=== PATIENT | male | born 1960 ===

== ENCOUNTER 2019-11-07 14:32 | Observation (INO) | payer MEDICAID, OTHER ==
[2019-11-07] MEDS ORDERED: Aspirin 81 MG Tab.Chew PO ONE (14:49)
[2019-11-07] MEDS ORDERED: Nitroglycerin 0.4 MG Tab.SL SL PRN (14:49)
--- NOTE | 2019-11-07 14:51 | EDM.PDOC ---
ED HPI GENERAL MEDICAL PROBLEM - General Chief Complaint: Respiratory Problem Stated Complaint: SHORTNESS OF BREATH Time Seen by Provider: 11/07/19 14:34 Source of Information: Reports: Patient History Limitations: Reports: No Limitations - History of Present Illness INITIAL COMMENTS - FREE TEXT/NARRATIVE: HISTORY AND PHYSICAL: History of present illness: Patient is a 58-year-old male who presents to the emergency room with complaints of shortness of breath and left-sided chest pain. He states that he started to have a coughing fit last evening around midnight and started to develop left sided chest pain. The pain is noticeable only when he coughs. States he is short of breath although this is "sort of usual for me" as he does have a history of COPD, although does not take his prescribed inhalers. States he also has a history of congestive heart failure and previously was on Lasix but is failed to take this medication as well. He states he was swabbed for COVID-19 a few days ago, although has not received any results. Patient denies any fever, chills, headache, change in vision, syncope or near syncope. Denies any chest pain, back pain, shortness of breath or cough. Denies any abdominal pain, nausea, vomiting, diarrhea, constipation or dysuria. Has not noted any blood in urine or stool. Patient has been eating and drinking appropriately. Review of systems: As per history of present illness and below otherwise all systems reviewed and negative. Past medical history: As per history of present illness and as reviewed below otherwise noncontributor y. Surgical history: As per history of present illness and as reviewed below otherwise noncontributory. Social history: See social history for further information Family history: As per history of present illness and as reviewed below otherwise noncontributory. Physical exam: General: Well developed and well nourished 58-year-old male. Alert and appropriate for age. Nontoxic-appearing and in no acute distress. HEENT: Atraumatic, normocephalic, pupils equal and reactive bilaterally, negative for conjunctival pallor or scleral icterus, mucous membranes moist, TMs normal bilaterally, throat clear, neck supple, nontender, trachea midline. No drooling or trismus noted. No meningeal signs. No hot potato voice noted. Lungs: Clear to auscultation, breath sounds equal bilaterally, chest nontender. Heart: S1S2, regular rate and rhythm without overt murmur Abdomen: Soft, obese, large umbilical hernia noted, nontender. Negative for hepatosplenomegaly. Negative for costovertebral tenderness. Skin: Intact, warm, dry. No lesions or rashes noted. Extremities: Atraumatic, moves all extremities per self without difficulty or deficits, negative for cords or calf pain. +2 pitting edema to bilateral lower extremities. +CMS. + bilateral pedal pulses. Neurovascular unremarkable. Neuro: Awake, alert, oriented. Cranial nerves II through XII unremarkable. Cerebellum unremarkable. Motor and sensory unremarkable throughout. Exam nonfocal. Notes: EKG shows sinus tachycardia with a rate of 111. He does have a prolonged QT interval (QT 378, QTc 514) -no EKG available for comparison. Patient's d-dimer is elevated at 2.24, CT chest rule out PE has been ordered. Due to the patient's large distended abdomen and concern of possible ascites we will add a CT of the abdomen and pelvis as well. Patient's BN P is 2023, he has a history of congestive heart failure but has not taken Lasix since April. He states he has failed to follow-up to get medication refills "since COVID-[address] of the abdomen and pelvis shows 3 anterior abdominal wall hernias. Additional fat-containing umbilical hernia, no obstruction. Small amount of ascites around the liver. Body wall edema is noted. Multiple small gallstones within the gallbladder. CT of chest shows no findings of pulmonary embolism. Small to moderate right-sided pleural effusion with fluid extending into the major fissure. Atelectasis adjacent to the pleural effusion is noted. Small groundglass nodule within the right middle lobe. The radiologist is recommending follow-up in 6 months. Patient's blood pressure is elevated, continues to be high through his ER stay. Will start oral lisinopril while here. I consulted Dr. Jenkins, hospitalist registration representative, she is aware of patient's need for admission. She is agreeable to ad mitting patient for further care and management. Will place patient on telemetry. Diagnostics: CBC, CMP, BNP, troponin, EKG, 1 view chest Therapeutics: Solu-Medrol, Lasix, Lisinopril Impression: Medication noncompliant CHF Uncontrolled HTN Chest pain r/o ID Prolonged QT on EKG Plan: Observation admission to med/surg with telemetry Definitive disposition and diagnosis as appropriate pending reevaluation and review of above. - Related Data Allergies Allergy/AdvReac Type Severity Reaction Status Date / Time celecoxib [From Celebrex] Allergy Swelling Verified 11/07/19 15:08 Home Meds: Home Meds . [No Known Home Meds] 11/07/19 [History] ED ROS GENERAL - Review of Systems Review Of Systems: Comprehensive ROS is negative, except as noted in HPI. ED EXAM, GENERAL - Physical Exam Exam: See Below (See dictation) Course - Vital Signs Last Recorded V/S: Last Vital Signs Temp 96.3 F L 11/07/19 14:37 Pulse 109 H 11/07/19 18:00 Resp 24 H 11/07/19 18:00 BP 145/100 H 11/07/19 18:04 Pulse Ox 96 11/07/19 18:00 - Orders/Labs/Meds Orders: Active Orders 24 hr Category Date Time Status EKG Documentation Completion [RC] STAT Care 11/07/19 14:46 Active UA RFX JUDI AND CULT IF INDIC [URIN] Stat Lab 11/07/19 17:25 Received Nitroglycerin [Nitrostat] Med 11/07/19 14:49 Active 0.4 mg SL Q5M PRN Medication Orders Nitroglycerin (Nitrostat) 0.4 mg SL Q5M PRN PRN Reason: Chest Pain Last Admin: 11/07/19 15:11 Dose: 0.4 mg Documented by: JASON Labs: Laboratory Tests 11/07/19 11/07/19 11/07/19 Range/Units 14:40 14:40 14:40 WBC 7.50 (4.0-11.0) K/uL RBC 4.46 L (4.50-5.90) M/uL Hgb 14.7 (13.0-17.0) g/dL Hct 44.2 (38.0-50.0) % MCV 99.1 H (80.0-98.0) fL MCH 33.0 H (27.0-32.0) pg MCHC 33.3 (31.0-37.0) g/dL RDW Std Deviation 53.5 (28.0-62.0) fl RDW Coeff of Abdirizak 15 (11.0-15.0) % Plt Count 215 (150-400) K/uL MPV 10.90 (7.40-12.00) fL Neut % (Auto) 70.1 (48.0-80.0) % Lymph % (Auto) 18.4 (16.0-40.0) % [place] % (Auto) 10.7 (0.0-15.0) % Eos % (Auto) 0.5 (0.0-7.0) % Baso % (Auto) 0.3 (0.0-1.5) % Neut # (Auto) 5.3 (1.4-5.7) K/uL Lymph # (Auto) 1.4 (0.6-2.4) K/uL [place] # (Auto) 0.8 (0.0-0.8) K/uL Eos # (Auto) 0.0 (0.0-0.7) K/uL Baso # (Auto) 0.0 (0.0-0.1) K/uL Nucleated RBC % 0.0 /100WBC Nucleated RBCs # 0 K/uL D-Dimer, Quantitative (0.0-0.50) mg/L FEU Lactate 1.4 (0.20-2.00) mmol/L Sodium 136 (136-148) mmol/L Potassium 4.6 (3.5-5.1) mmol/L Chloride 101 (98-107) mmol/L Carbon Dioxide 22.8 (21.0-32.0) mmol/L BUN 18 (7.0-18.0) mg/dL Creatinine 1.0 (0.8-1.3) mg/dL Est Cr Clr Drug Dosing 86.80 mL/min Estimated GFR (MDRD) > 60.0 ml/min Glucose 101 (74-106) mg/dL Calcium 8.7 (8.5-10.1) mg/dL Total Bilirubin 1.8 H (0.2-1.0) mg/dL AST 43 H (15-37) IU/L ALT 29 (14-63) IU/L Alkaline Phosphatase 140 H (46-116) U/L Troponin I < 0.050 (0.000-0.056) ng/mL B-Natriuretic Peptide (<100) PG/ML Total Protein 8.3 H (6.4-8.2) g/dL Albumin 3.8 (3.4-5.0) g/dL Globulin 4.5 H (2.6-4.0) g/dL Albumin/Globulin Ratio 0.8 L (0.9-1.6) Lipase 100 (73-393) U/L COVID-19 (SIGRID) (NEGATIVE) 11/07/19 11/07/19 11/07/19 Range/Units 14:40 14:40 15:25 WBC (4.0-11.0) K/uL RBC (4.50-5.90) M/uL Hgb (13.0-17.0) g/dL Hct (38.0-50.0) % MCV (80.0-98.0) fL MCH (27.0-32.0) pg MCHC (31.0-37.0) g/dL RDW Std Deviation (28.0-62.0) fl RDW Coeff of Abdirizak (11.0-15.0) % Plt Count (150-400) K/uL MPV (7.40-12.00) fL Neut % (Auto) (48.0-80.0) % Lymph % (Auto) (16.0-40.0) % [place] % (Auto) (0.0-15.0) % Eos % (Auto) (0.0-7.0) % Baso % (Auto) (0.0-1.5) % Neut # (Auto) (1.4-5.7) K/uL Lymph # (Auto) (0.6-2.4) K/uL [place] # (Auto) (0.0-0.8) K/uL Eos # (Auto) (0.0-0.7) K/uL Baso # (Auto) (0.0-0.1) K/uL Nucleated RBC % /100WBC Nucleated RBCs # K/uL D-Dimer, Quantitative 2.24 H (0.0-0.50) mg/L FEU Lactate (0.20-2.00) mmol/L Sodium (136-148) mmol/L Potassium (3.5-5.1) mmol/L Chloride (98-107) mmol/L Carbon Dioxide (21.0-32.0) mmol/L BUN (7.0-18.0) mg/dL Creatinine (0.8-1.3) mg/dL Est Cr Clr Drug Dosing mL/min Estimated GFR (MDRD) ml/min Glucose (74-106) mg/dL Calcium (8.5-10.1) mg/dL Total Bilirubin (0.2-1.0) mg/dL AST (15-37) IU/L ALT (14-63) IU/L Alkaline Phosphatase (46-116) U/L Troponin I (0.000-0.056) ng/mL B-Natriuretic Peptide 2024 H (<100) PG/ML Total Protein (6.4-8.2) g/dL Albumin (3.4-5.0) g/dL Globulin (2.6-4.0) g/dL Albumin/Globulin Ratio (0.9-1.6) Lipase (73-393) U/L COVID-19 (SIGRID) NEGATIVE (NEGATIVE) Meds: Medications Generic Name Dose Route Start Last Admin Trade Name Freq PRN Reason Stop Dose Admin Nitroglycerin 0.4 mg 11/07/19 14:49 11/07/19 15:11 Nitrostat SL 0.4 mg Q5M PRN Administration Chest Pain Discontinued Medications Generic Name Dose Route Start Last Admin Trade Name Freq PRN Reason Stop Dose Admin Aspirin 324 mg 11/07/19 14:49 11/07/19 15:10 Aspirin PO 11/07/19 14:50 324 mg ONETIME ONE Administration Furosemide 40 mg 11/07/19 16:23 11/07/19 17:02 Lasix IVPUSH 11/07/19 16:24 40 mg NOW ONE Administration Iopamidol 100 ml 11/07/19 16:32 11/07/19 16:33 Isovue Multipack-370 (76%) IVPUSH 11/07/19 16:33 100 ml ONETIME ONE Administration Lisinopril 10 mg 11/07/19 17:06 11/07/19 18:04 Prinivil PO 11/07/19 17:07 10 mg ONETIME ONE Administration Methylprednisolone Sodium Succinate 125 mg 11/07/19 14:54 11/07/19 15:09 Solu-Medrol IVPUSH 11/07/19 14:55 125 mg ONETIME ONE Administration Departure - Departure Time of Disposition: 18:23 Disposition: Refer to Observation Clinical Impression: Prolonged QT interval, Chest pain, rule out acute myocardial infarction, Noncompliance with medication regimen, Uncontrolled hypertension CHF (congestive heart failure) Qualifiers: Heart failure type: unspecified Heart failure chronicity: unspecified Qualified Code(s): I50.9 - Heart failure, unspecified - Discharge Information Sepsis Event Note (ED) - Evaluation Sepsis Screening Result: No Definite Risk - Focused Exam Vital Signs: Vital Signs Temp Pulse Resp BP BP Pulse Ox 11/07/19 17:00 106 H 25 H 163/121 H 97 11/07/19 15:30 103 H 25 H 137/88 95 11/07/19 15:11 146/104 H 11/07/19 14:37 96.3 F L 109 H 25 H 153/105 H 96 - My Orders Last 24 Hours: My Active Orders 11/07/19 14:46 EKG Documentation Completion [RC] STAT 11/07/19 14:49 Nitroglycerin [Nitrostat] 0.4 mg SL Q5M PRN 11/07/19 17:25 UA RFX JUDI AND CULT IF INDIC [URIN] Stat - Assessment/Plan Last 24 Hours: My Active Orders 11/07/19 14:46 EKG Documentation Completion [RC] STAT 11/07/19 14:49 Nitroglycerin [Nitrostat] 0.4 mg SL Q5M PRN 11/07/19 17:25 UA RFX JUDI AND CULT IF INDIC [URIN] Stat
[2019-11-07] MEDS ORDERED: methylPREDNISolone Sodium Succinate 125 MG/2 ML SDV IVPUSH ONE (14:54)
[2019-11-07 15:25] LABS: BLOOD UREA NITROGEN,BUN 18 mg/dL (7.0-18.0); CARBON DIOXIDE,CO2 22.8 mmol/L (21.0-32.0); CHLORIDE,CL 101 mmol/L (98-107); GLUCOSE RANDOM 101 mg/dL (74-106); LIPASE 100 U/L (73-393); POTASSIUM,K 4.6 mmol/L (3.5-5.1); SODIUM,NA 136 mmol/L (136-148)
--- NOTE | 2019-11-07 15:40 | CR ---
Chest: Portable view of the chest was obtained. Comparison: No previous chest imaging is available. Consolidation is noted within the right lung base. Most of this appears to represent pleural effusion. Adjacent atelectasis versus pneumonia is also seen. Left lung is clear. Heart size appears within normal limits for portable technique. Upper mediastinum is normal. Impression: 1. Right-sided pleural effusion with adjacent atelectasis or pneumonia. 2. Portable chest x-ray is otherwise unremarkable. Diagnostic code #3 This report was dictated in MDT
[2019-11-07] MEDS ORDERED: Furosemide 40 MG/4 ML VIAL IVPUSH ONE (16:23)
[2019-11-07] MEDS ORDERED: Iopamidol 755 MG/ML 200 ML Multipack Bottle IVPUSH ONE (16:32)
--- NOTE | 2019-11-07 16:57 | CT ---
CT chest Technique: Multiple axial sections through the chest were obtained. Study performed as pulmonary angiogram protocol. Findings: Pulmonary arteries are fairly well opacified. No filling defects are seen to indicate pulmonary embolism. Aorta shows no aneurysm with mild atherosclerotic calcification. Small lymph nodes are seen within the mediastinum believed to be within normal limits. Coronary calcification is seen. No pericardial thickening is seen. Small to moderate size right-sided pleural effusion is noted. Fluid is seen to extend into the major fissure. Atelectasis is likely on a compressive basis and seen adjacent to the pleural effusion. Left lung is clear. Minimal nodular area of groundglass appearance is noted within the right middle lobe. Six-month follow-up noncontrast CT recommended to make sure this does not change. Impression: 1. No findings of pulmonary embolism. 2. Small to moderate right-sided pleural effusion with fluid extending into the major fissure. Atelectasis adjacent to the pleural effusion is noted. 3. Small groundglass nodule within the right middle lobe. Follow-up noncontrast chest CT recommended in 6 months to confirm stability or hopefully disappearance of this finding. Follow-up would occur in May,. Diagnostic code #9 This report was dictated in MDT
--- NOTE | 2019-11-07 16:57 | CT ---
CT abdomen and pelvis Technique: Multiple axial sections were obtained from above the dome of the diaphragm inferiorly through the pubic symphysis. Intravenous contrast was utilized. No oral contrast has been given. Comparison: No previous abdominal imaging is available. Findings: Small amount of fluid around the liver is seen. Liver contains no focal parenchymal abnormality. Spleen appears within normal limits. Kidneys show symmetric contrast enhancement without hydronephrosis. Multiple small gallstones are seen within the gallbladder. Adrenal glands show no nodule. Pancreas is within normal limits. Aorta shows atherosclerotic change without aneurysm. No retroperitoneal adenopathy or mesenteric abnormalities are appreciated. Multiple anterior abdominal wall hernias are noted. Most superior one is to the left of midline and contains fat. Directly inferior to the right of midline there is a hernia containing a small bit of transverse colon which shows no obstruction. Third hernia is noted more inferiorly to the right of midline and is larger in size containing fat. Small fatty containing umbilical hernia is also noted. No pelvic mass or adenopathy is seen. Scattered subcutaneous edema is noted throughout the abdomen. Bone window settings were reviewed which shows diffuse degenerative change within the spine. Fusion is noted of several lower thoracic vertebral bodies. No acute osseous finding is appreciated. Appendix is not visualized with certainty. Impression: 1. 3 anterior abdominal wall hernias as described above. Additional fatty containing umbilical hernia. 2. Small amount of ascites around the liver. 3. Body wall edema is noted. 4. Multiple small gallstones within the gallbladder. 5. No other acute abnormality is appreciated on CT study of the abdomen and pelvis. Diagnostic code #3 This report was dictated in MDT
[2019-11-07] MEDS ORDERED: Lisinopril 10 MG Tab PO ONE (17:06)
--- NOTE | 2019-11-07 17:18 | PCM.SN.2 ---
- Free Text/Narrative Note: Patient was presented to be by the mid-level provider, who sees patients independently as a licensed independent practitioner by [place] and [facility] law. Up until the point that my assistance was requested, the mid-level provider has been solely, exclusively, and independently caring for this patient and they are responsible for all aspects of care including performing the history and physical, formulating medical decision making, ordering medications, and ordering and evaluating testing. I have personally and independently seen and evaluated the patient at bedside and, if available, have spoken with the with the family. I agree with the history, physical, medical decision making, and plan of treatment as documented by the mid-level provider. I performed the medical decision making for this patient, including assessing the results of all diagnostic testing and I have instructed the mid-level provider to document the results and carry through with the treatment plan that I deemed appropriate. The final completed note is the responsibility of the mid-level provider. If needed, any other comments, a focused physical examination, or my own medical decision making are documented below. In brief, this is a 58-year-old male with a past medical history of congestive heart failure, hypertension, COPD, and diabetes mellitus with medication noncompliance for several months. He presents with 2-day history of worsening dyspnea, lower extremity edema, and chest pain only while coughing. Noted to be tachycardic and hypertensive. Pulse oximetry readings are normal, the patient is mildly tachypneic. Labs show elevated d-dimer, normal lactate. Negative troponin. Total bilirubin is elevated at 1.8. BNP is elevated at 2024. Clinically, patient appears volume overloaded with decreased lung sounds in the right base, pitting peripheral edema. We did obtain a CT pulmonary angiogram study with abdomen/pelvis windows which demonstrated small amount of ascites, no PE, and a right-sided pleural effusion. I believe the patient may have decompensated systolic heart failure. He will be given furosemide IV, full dose aspirin, oral lisinopril, and was also given methylprednisolone for some wheezing. He will need to be admitted the hospital for work-up and treatment of what appears to be decompensated systolic heart failure. Admitted to the hospitalist service.
[2019-11-07] MEDS ORDERED: Acetaminophen 325 MG Tab PO PRN (18:28)
[2019-11-07] MEDS ORDERED: Albuterol/Ipratropium 3.0-0.5 MG/3 ML Neb Soln NEB PRN (18:34)
--- NOTE | 2019-11-07 18:42 | PCM.HP.2 ---
<Jamey Diaz M - Last Filed: 11/07/19 19:14> H&P History of Present Illness - General Date of Service: 11/07/19 Admit Problem/Dx: Admission Diagnosis/Problem Admission Diagnosis/Problem Chest pain, rule out acute myocardial infarction Source of Information: Patient History Limitations: Reports: No Limitations - History of Present Illness Initial Comments - Free Text/Narative: 58-year-old male presents complaining of left-sided chest pain, shortness of breath and leg swelling. He has a PMH of CHF, COPD, HTN and diabetes mellitus type 2. Patient reports that he fell on his back a week ago and since then when he coughs he feels a sharp pain in his left chest. He also reports shortness of breath for the past few months. His leg swelling has been present for 2 years now. He has noticed gaining weight because his shirts are tighter around his abdomen in recent weeks but unsure how much. He also feels short of breath when laying down. He was diagnosed with CHF about 2 years ago but is unable to afford any of his medications so he has not been taking any. He recently moved to [place] from [place] about 2 weeks ago. Smokes 1/4 ppd, drinks 6 beers per week and uses marijuana. He denies having any fevers, chills, blurry vision, sore throat, nausea, vomiting, abdominal pain, diarrhea, blood in stool, blood in urine, numbness or tingling in extremities. In the ER, CBC was unremarkable, BNP was 2000, initial troponin was negative and COVID19 test negative. Total bilirubin elevated at 1.8. CXR showed small right pleural effusion. CT abdomen/pelvis showed small ascites around liver, abdomen wall hernias and multiple gallstones. CT angio showed no pulmonary embolism, small right pleural effusion and a nodule in RML. EKG showed sinus tachycardia with prolonged QT interval. Patient given IV lasix 40 mg x 1, IV solumedrol 125 mg, aspirin 324 mg and nitroglycerin x 1. Patient admitted for further evaluation and treatment. - Related Data Allergies/Adverse Reactions: Allergies Allergy/AdvReac Type Severity Reaction Status Date / Time celecoxib [From Celebrex] Allergy Swelling Verified 11/07/19 20:12 Home Medications: Home Meds . [No Known Home Meds] 11/07/19 [History] Past Medical History Cardiovascular History: Reports: Hypertension, Other (See Below) Other Cardiovascular History: CHF, states he does not take med for HTN Respiratory History: Reports: COPD, Other (See Below) Other Respiratory History: states not on home 02 Gastrointestinal History: Reports: Other (See Below) Other Gastrointestinal History: peptic ulcer, abd hernia - Infectious Disease History Infectious Disease History: Reports: Chicken Pox - Past Surgical History Cardiovascular Surgical History: Reports: None Respiratory Surgical History: Reports: None GI Surgical History: Reports: Other (See Below) Other GI Surgeries/Procedures: abd sx for peptic ulcer Social & Family History - Family History Family Medical History: Noncontributory - Tobacco Use Smoking Status *Q: Current Every Day Smoker Years of Tobacco use: 40 Packs/Tins Daily: 1 - Caffeine Use Caffeine Use: Reports: Coffee - Recreational Drug Use Recreational Drug Use: No H&P Review of Systems - Review of Systems: Review Of Systems: Comprehensive ROS is negative, except as noted in HPI. Exam - Exam Exam: See Below - Vital Signs Vital Signs: Last Vital Signs Temp 35.7 C L 11/07/19 14:37 Pulse 109 H 11/07/19 18:00 Resp 24 H 11/07/19 18:00 BP 145/100 H 11/07/19 18:04 Pulse Ox 96 11/07/19 18:00 Weight: 106.594 kg - Exam General: Alert, Oriented, Cooperative, Mild Distress HEENT: Conjunctiva Clear, Hearing Intact, Posterior Pharynx Clear, Pupils Equal, Pupils Reactive Neck: Supple, Trachea Midline Lungs: Other (rales heard in lung bases, short shallow breaths) Cardiovascular: Regular Rhythm, Tachycardia GI/Abdominal Exam: Normal Bowel Sounds, Soft, Non-Tender, Distended. No: Guarding, Rebound Extremities: Other (1+ pitting edema b/l) Skin: Warm, Dry, Intact Neurological: Cranial Nerves Intact, Strength Equal Bilateral, Normal Speech, Normal Tone Neuro Extensive - Mental Status: Alert, Oriented x3, Normal Mood/Affect - Patient Data Lab Results Last 24 hrs: Laboratory Results - last 24 hr 11/07/19 11/07/19 11/07/19 Range/Units 14:40 14:40 14:40 WBC 7.50 (4.0-11.0) K/uL RBC 4.46 L (4.50-5.90) M/uL Hgb 14.7 (13.0-17.0) g/dL Hct 44.2 (38.0-50.0) % MCV 99.1 H (80.0-98.0) fL MCH 33.0 H (27.0-32.0) pg MCHC 33.3 (31.0-37.0) g/dL RDW Std Deviation 53.5 (28.0-62.0) fl RDW Coeff of Abdirizak 15 (11.0-15.0) % Plt Count 215 (150-400) K/uL MPV 10.90 (7.40-12.00) fL Neut % (Auto) 70.1 (48.0-80.0) % Lymph % (Auto) 18.4 (16.0-40.0) % Todd % (Auto) 10.7 (0.0-15.0) % Eos % (Auto) 0.5 (0.0-7.0) % Baso % (Auto) 0.3 (0.0-1.5) % Neut # (Auto) 5.3 (1.4-5.7) K/uL Lymph # (Auto) 1.4 (0.6-2.4) K/uL Todd # (Auto) 0.8 (0.0-0.8) K/uL Eos # (Auto) 0.0 (0.0-0.7) K/uL Baso # (Auto) 0.0 (0.0-0.1) K/uL Nucleated RBC % 0.0 /100WBC Nucleated RBCs # 0 K/uL D-Dimer, Quantitative (0.0-0.50) mg/L FEU Lactate 1.4 (0.20-2.00) mmol/L Sodium 136 (136-148) mmol/L Potassium 4.6 (3.5-5.1) mmol/L Chloride 101 (98-107) mmol/L Carbon Dioxide 22.8 (21.0-32.0) mmol/L BUN 18 (7.0-18.0) mg/dL Creatinine 1.0 (0.8-1.3) mg/dL Est Cr Clr Drug Dosing 86.80 mL/min Estimated GFR (MDRD) > 60.0 ml/min Glucose 101 (74-106) mg/dL Calcium 8.7 (8.5-10.1) mg/dL Total Bilirubin 1.8 H (0.2-1.0) mg/dL AST 43 H (15-37) IU/L ALT 29 (14-63) IU/L Alkaline Phosphatase 140 H (46-116) U/L Troponin I < 0.050 (0.000-0.056) ng/mL B-Natriuretic Peptide (<100) PG/ML Total Protein 8.3 H (6.4-8.2) g/dL Albumin 3.8 (3.4-5.0) g/dL Globulin 4.5 H (2.6-4.0) g/dL Albumin/Globulin Ratio 0.8 L (0.9-1.6) Lipase 100 (73-393) U/L COVID-19 (SIGRDI) (NEGATIVE) 11/07/19 11/07/19 11/07/19 Range/Units 14:40 14:40 15:25 WBC (4.0-11.0) K/uL RBC (4.50-5.90) M/uL Hgb (13.0-17.0) g/dL Hct (38.0-50.0) % MCV (80.0-98.0) fL MCH (27.0-32.0) pg MCHC (31.0-37.0) g/dL RDW Std Deviation (28.0-62.0) fl RDW Coeff of Abdirizak (11.0-15.0) % Plt Count (150-400) K/uL MPV (7.40-12.00) fL Neut % (Auto) (48.0-80.0) % Lymph % (Auto) (16.0-40.0) % Todd % (Auto) (0.0-15.0) % Eos % (Auto) (0.0-7.0) % Baso % (Auto) (0.0-1.5) % Neut # (Auto) (1.4-5.7) K/uL Lymph # (Auto) (0.6-2.4) K/uL Todd # (Auto) (0.0-0.8) K/uL Eos # (Auto) (0.0-0.7) K/uL Baso # (Auto) (0.0-0.1) K/uL Nucleated RBC % /100WBC Nucleated RBCs # K/uL D-Dimer, Quantitative 2.24 H (0.0-0.50) mg/L FEU Lactate (0.20-2.00) mmol/L Sodium (136-148) mmol/L Potassium (3.5-5.1) mmol/L Chloride (98-107) mmol/L Carbon Dioxide (21.0-32.0) mmol/L BUN (7.0-18.0) mg/dL Creatinine (0.8-1.3) mg/dL Est Cr Clr Drug Dosing mL/min Estimated GFR (MDRD) ml/min Glucose (74-106) mg/dL Calcium (8.5-10.1) mg/dL Total Bilirubin (0.2-1.0) mg/dL AST (15-37) IU/L ALT (14-63) IU/L Alkaline Phosphatase (46-116) U/L Troponin I (0.000-0.056) ng/mL B-Natriuretic Peptide 2024 H (<100) PG/ML Total Protein (6.4-8.2) g/dL Albumin (3.4-5.0) g/dL Globulin (2.6-4.0) g/dL Albumin/Globulin Ratio (0.9-1.6) Lipase (73-393) U/L COVID-19 (SIGRID) NEGATIVE (NEGATIVE) 11/07/19 Range/Units 17:54 WBC (4.0-11.0) K/uL RBC (4.50-5.90) M/uL Hgb (13.0-17.0) g/dL Hct (38.0-50.0) % MCV (80.0-98.0) fL MCH (27.0-32.0) pg MCHC (31.0-37.0) g/dL RDW Std Deviation (28.0-62.0) fl RDW Coeff of Abdirizak (11.0-15.0) % Plt Count (150-400) K/uL MPV (7.40-12.00) fL Neut % (Auto) (48.0-80.0) % Lymph % (Auto) (16.0-40.0) % Todd % (Auto) (0.0-15.0) % Eos % (Auto) (0.0-7.0) % Baso % (Auto) (0.0-1.5) % Neut # (Auto) (1.4-5.7) K/uL Lymph # (Auto) (0.6-2.4) K/uL Todd # (Auto) (0.0-0.8) K/uL Eos # (Auto) (0.0-0.7) K/uL Baso # (Auto) (0.0-0.1) K/uL Nucleated RBC % /100WBC Nucleated RBCs # K/uL D-Dimer, Quantitative (0.0-0.50) mg/L FEU Lactate (0.20-2.00) mmol/L Sodium (136-148) mmol/L Potassium (3.5-5.1) mmol/L Chloride (98-107) mmol/L Carbon Dioxide (21.0-32.0) mmol/L BUN (7.0-18.0) mg/dL Creatinine (0.8-1.3) mg/dL Est Cr Clr Drug Dosing mL/min Estimated GFR (MDRD) ml/min Glucose (74-106) mg/dL Calcium (8.5-10.1) mg/dL Total Bilirubin (0.2-1.0) mg/dL AST (15-37) IU/L ALT (14-63) IU/L Alkaline Phosphatase (46-116) U/L Troponin I < 0.050 (0.000-0.056) ng/mL B-Natriuretic Peptide (<100) PG/ML Total Protein (6.4-8.2) g/dL Albumin (3.4-5.0) g/dL Globulin (2.6-4.0) g/dL Albumin/Globulin Ratio (0.9-1.6) Lipase (73-393) U/L COVID-19 (SIGRID) (NEGATIVE) Result Diagrams: 11/07/19 14:40 11/07/19 14:40 Sepsis Event Note - Evaluation Sepsis Screening Result: No Definite Risk - Focused Exam Vital Signs: Vital Signs Temp Pulse Resp BP BP Pulse Ox 11/07/19 18:04 145/100 H 11/07/19 18:00 109 H 24 H 145/100 H 96 11/07/19 17:00 106 H 25 H 163/121 H 97 11/07/19 15:30 103 H 25 H 137/88 95 11/07/19 15:11 146/104 H 11/07/19 14:37 35.7 C L 109 H 25 H 153/105 H 96 Date Exam was Performed: 11/07/19 Time Exam was Performed: 19:14 Problem List Initiated/Reviewed/Updated: Yes Orders Last 24hrs: Active Orders 24 hr Category Date Time Status Admission Status [Patient Status] [ADT] Stat ADT 11/07/19 17:12 Active Blood Glucose Check, Bedside [RC] TIDAC Care 11/07/19 18:33 Ordered Cardiac Monitoring [RC] . DIRECTED Care 11/07/19 18:30 Ordered Daily Weight [Height and Weight] [RC] DAILY Care 11/07/19 18:31 Ordered EKG Documentation Completion [RC] STAT Care 11/07/19 14:46 Active Intake and Output Strict [RC] ASDIRECTED Care 11/07/19 18:31 Ordered Oxygen Therapy [RC] PRN Care 11/07/19 18:28 Ordered RT Aerosol Therapy [RC] ASDIRECTED Care 11/07/19 18:35 Ordered Up ad Anastasia [RC] ASDIRECTED Care 11/07/19 18:28 Ordered VTE/DVT Education [RC] PER UNIT ROUTINE Care 11/07/19 18:28 Ordered Vital Signs [RC] Q4H Care 11/07/19 18:28 Ordered [place] [employer] Diet [DIET] Diet 11/07/19 Dinner Active Fluid Restriction [DIET] Diet 11/07/19 Dinner Ordered Low Salt [Sodium Restricted Diet] [DIET] Diet 11/07/19 Dinner Ordered Echo Comp wo Cont [US] Urgent Exams 11/07/19 18:32 Ordered CBC WITH AUTO DIFF [HEME] AM Lab 11/08/19 05:11 Ordered COMPREHENSIVE METABOLIC PN,CMP [CHEM] AM Lab 11/08/19 05:11 Ordered GLYCOSYLATED HEMOGLOBIN,HGBA1C [CHEM] AM Lab 11/08/19 05:11 Ordered LIPID PANEL [CHEM] AM Lab 11/08/19 05:11 Ordered TROPONIN I [CHEM] Q3H Lab 11/07/19 20:45 Ordered TSH [CHEM] AM Lab 11/08/19 05:11 Ordered UA RFX JUDI AND CULT IF INDIC [URIN] Stat Lab 11/07/19 17:25 Received Acetaminophen [Tylenol] Med 11/07/19 18:28 Ordered 650 mg PO Q4H PRN Albuterol/Ipratropium [DuoNeb 3.0-0.5 MG/3 ML] Med 11/07/19 18:34 Ordered 3 ml NEB Q4HRRT PRN Furosemide [Lasix] Med 11/07/19 18:30 Ordered 40 mg IVPUSH Q8H Heparin Sodium Med 11/07/19 18:30 Ordered 5,000 units SUBCUT Q8H Insulin Aspart [NovoLOG] Med 11/08/19 07:30 Ordered See Protocol SUBCUT TIDAC Nitroglycerin [Nitrostat] Med 11/07/19 14:49 Active 0.4 mg SL Q5M PRN lisinopriL [Prinivil] Med 11/08/19 09:00 Ordered 10 mg PO DAILY Resuscitation Status Routine Resus Stat 11/07/19 18:28 Ordered Medication Orders Acetaminophen (Tylenol) 650 mg PO Q4H PRN PRN Reason: Pain (Mild 1-3)/fever Albuterol/Ipratropium (Duoneb 3.0-0.5 Mg/3 Ml) 3 ml NEB Q4HRRT PRN PRN Reason: Dyspnea Furosemide (Lasix) 40 mg IVPUSH Q8H CHARLIE Heparin Sodium (Porcine) (Heparin Sodium) 5,000 units SUBCUT Q8H CHARLIE Insulin Aspart (Novolog) 0 unit SUBCUT TIDAC CHARLIE; Protocol Lisinopril (Prinivil) 10 mg PO DAILY CHARLIE Nitroglycerin (Nitrostat) 0.4 mg SL Q5M PRN PRN Reason: Chest Pain Last Admin: 11/07/19 15:11 Dose: 0.4 mg Documented by: JASON Assessment/Plan Comment:: Assessment and Plan: 1. Acute CHF exacerbation: - Admit to med/surg. Patient on telemetry. Will order ECHO and IV lasix 40 mg TID. Strict I/O's, daily standing weights, fluid restrict < 2L and low salt < 2 g per day. CXR showed right pleural effusion. 2. Chest pain, ACS rule out: - Initial troponin was negative. Will continue to trend trops q3h x 2. EKG showed sinus tachycardia with prolonged QT interval. - CT angio negative for pulmonary embolism, showed small right pleural and nodule in RML. 3. Hypertension: - Will start lisinopril 10 mg qd. 4. Diabetes mellitus type 2: - ADA diet, SSI, glucose checks TIDAC. 5. Right middle lobe nodule: - Repeat CT chest w/o contrast in 6 months. 6. DVT prophylaxis: heparin. <Alexx Jenkins - Last Filed: 11/07/19 22:47> H&P History of Present Illness - General Admit Problem/Dx: Admission Diagnosis/Problem Admission Diagnosis/Problem Chest pain, rule out acute myocardial infarction - History of Present Illness Initial Comments - Free Text/Narative: I performed a history and physical exam of the patient and discussed management with resident. I have reviewed the residents note and agree with documented findings and plan unless otherwise specified in my note. Exam - Vital Signs Vital Signs: Last Vital Signs Temp 36.8 C 11/07/19 20:08 Pulse 109 H 11/07/19 20:08 Resp 24 H 11/07/19 18:00 BP 179/112 H 11/07/19 20:08 Pulse Ox 96 11/07/19 21:19 - Patient Data Lab Results Last 24 hrs: Laboratory Results - last 24 hr 11/07/19 11/07/19 11/07/19 Range/Units 14:40 14:40 14:40 WBC 7.50 (4.0-11.0) K/uL RBC 4.46 L (4.50-5.90) M/uL Hgb 14.7 (13.0-17.0) g/dL Hct 44.2 (38.0-50.0) % MCV 99.1 H (80.0-98.0) fL MCH 33.0 H (27.0-32.0) pg MCHC 33.3 (31.0-37.0) g/dL RDW Std Deviation 53.5 (28.0-62.0) fl RDW Coeff of Abdirizak 15 (11.0-15.0) % Plt Count 215 (150-400) K/uL MPV 10.90 (7.40-12.00) fL Neut % (Auto) 70.1 (48.0-80.0) % Lymph % (Auto) 18.4 (16.0-40.0) % Todd % (Auto) 10.7 (0.0-15.0) % Eos % (Auto) 0.5 (0.0-7.0) % Baso % (Auto) 0.3 (0.0-1.5) % Neut # (Auto) 5.3 (1.4-5.7) K/uL Lymph # (Auto) 1.4 (0.6-2.4) K/uL Todd # (Auto) 0.8 (0.0-0.8) K/uL Eos # (Auto) 0.0 (0.0-0.7) K/uL Baso # (Auto) 0.0 (0.0-0.1) K/uL Nucleated RBC % 0.0 /100WBC Nucleated RBCs # 0 K/uL D-Dimer, Quantitative (0.0-0.50) mg/L FEU Lactate 1.4 (0.20-2.00) mmol/L Sodium 136 (136-148) mmol/L Potassium 4.6 (3.5-5.1) mmol/L Chloride 101 (98-107) mmol/L Carbon Dioxide 22.8 (21.0-32.0) mmol/L BUN 18 (7.0-18.0) mg/dL Creatinine 1.0 (0.8-1.3) mg/dL Est Cr Clr Drug Dosing 86.80 mL/min Estimated GFR (MDRD) > 60.0 ml/min Glucose 101 (74-106) mg/dL Calcium 8.7 (8.5-10.1) mg/dL Phosphorus (2.6-4.7) mg/dL Magnesium (1.8-2.4) mg/dL Total Bilirubin 1.8 H (0.2-1.0) mg/dL AST 43 H (15-37) IU/L ALT 29 (14-63) IU/L Alkaline Phosphatase 140 H (46-116) U/L Troponin I < 0.050 (0.000-0.056) ng/mL B-Natriuretic Peptide (<100) PG/ML Total Protein 8.3 H (6.4-8.2) g/dL Albumin 3.8 (3.4-5.0) g/dL Globulin 4.5 H (2.6-4.0) g/dL Albumin/Globulin Ratio 0.8 L (0.9-1.6) Lipase 100 (73-393) U/L Urine Color Urine Appearance Urine pH (5.0-8.0) Ur Specific [place] (1.001-1.035) Urine Protein (NEGATIVE) mg/dL Urine Glucose (UA) (NEGATIVE) mg/dL Urine Ketones (NEGATIVE) mg/dL Urine Occult Blood (NEGATIVE) Urine Nitrite (NEGATIVE) Urine Bilirubin (NEGATIVE) Urine Urobilinogen (<2.0) EU/dL Ur Leukocyte Esterase (NEGATIVE) Urine RBC (0-2/HPF) Urine WBC (0-5/HPF) Ur Epithelial Cells (NONE-FEW) Urine Bacteria (NEGATIVE) COVID-19 (SIGRID) (NEGATIVE) 11/07/19 11/07/19 11/07/19 Range/Units 14:40 14:40 15:25 WBC (4.0-11.0) K/uL RBC (4.50-5.90) M/uL Hgb (13.0-17.0) g/dL Hct (38.0-50.0) % MCV (80.0-98.0) fL MCH (27.0-32.0) pg MCHC (31.0-37.0) g/dL RDW Std Deviation (28.0-62.0) fl RDW Coeff of Abdirizak (11.0-15.0) % Plt Count (150-400) K/uL MPV (7.40-12.00) fL Neut % (Auto) (48.0-80.0) % Lymph % (Auto) (16.0-40.0) % Todd % (Auto) (0.0-15.0) % Eos % (Auto) (0.0-7.0) % Baso % (Auto) (0.0-1.5) % Neut # (Auto) (1.4-5.7) K/uL Lymph # (Auto) (0.6-2.4) K/uL Todd # (Auto) (0.0-0.8) K/uL Eos # (Auto) (0.0-0.7) K/uL Baso # (Auto) (0.0-0.1) K/uL Nucleated RBC % /100WBC Nucleated RBCs # K/uL D-Dimer, Quantitative 2.24 H (0.0-0.50) mg/L FEU Lactate (0.20-2.00) mmol/L Sodium (136-148) mmol/L Potassium (3.5-5.1) mmol/L Chloride (98-107) mmol/L Carbon Dioxide (21.0-32.0) mmol/L BUN (7.0-18.0) mg/dL Creatinine (0.8-1.3) mg/dL Est Cr Clr Drug Dosing mL/min Estimated GFR (MDRD) ml/min Glucose (74-106) mg/dL Calcium (8.5-10.1) mg/dL Phosphorus (2.6-4.7) mg/dL Magnesium (1.8-2.4) mg/dL Total Bilirubin (0.2-1.0) mg/dL AST (15-37) IU/L ALT (14-63) IU/L Alkaline Phosphatase (46-116) U/L Troponin I (0.000-0.056) ng/mL B-Natriuretic Peptide 2024 H (<100) PG/ML Total Protein (6.4-8.2) g/dL Albumin (3.4-5.0) g/dL Globulin (2.6-4.0) g/dL Albumin/Globulin Ratio (0.9-1.6) Lipase (73-393) U/L Urine Color Urine Appearance Urine pH (5.0-8.0) Ur Specific [place] (1.001-1.035) Urine Protein (NEGATIVE) mg/dL Urine Glucose (UA) (NEGATIVE) mg/dL Urine Ketones (NEGATIVE) mg/dL Urine Occult Blood (NEGATIVE) Urine Nitrite (NEGATIVE) Urine Bilirubin (NEGATIVE) Urine Urobilinogen (<2.0) EU/dL Ur Leukocyte Esterase (NEGATIVE) Urine RBC (0-2/HPF) Urine WBC (0-5/HPF) Ur Epithelial Cells (NONE-FEW) Urine Bacteria (NEGATIVE) COVID-19 (SIGRID) NEGATIVE (NEGATIVE) 11/07/19 11/07/19 11/07/19 Range/Units 17:25 17:54 20:51 WBC (4.0-11.0) K/uL RBC (4.50-5.90) M/uL Hgb (13.0-17.0) g/dL Hct (38.0-50.0) % MCV (80.0-98.0) fL MCH (27.0-32.0) pg MCHC (31.0-37.0) g/dL RDW Std Deviation (28.0-62.0) fl RDW Coeff of Abdirizak (11.0-15.0) % Plt Count (150-400) K/uL MPV (7.40-12.00) fL Neut % (Auto) (48.0-80.0) % Lymph % (Auto) (16.0-40.0) % Todd % (Auto) (0.0-15.0) % Eos % (Auto) (0.0-7.0) % Baso % (Auto) (0.0-1.5) % Neut # (Auto) (1.4-5.7) K/uL Lymph # (Auto) (0.6-2.4) K/uL Todd # (Auto) (0.0-0.8) K/uL Eos # (Auto) (0.0-0.7) K/uL Baso # (Auto) (0.0-0.1) K/uL Nucleated RBC % /100WBC Nucleated RBCs # K/uL D-Dimer, Quantitative (0.0-0.50) mg/L FEU Lactate (0.20-2.00) mmol/L Sodium (136-148) mmol/L Potassium (3.5-5.1) mmol/L Chloride (98-107) mmol/L Carbon Dioxide (21.0-32.0) mmol/L BUN (7.0-18.0) mg/dL Creatinine (0.8-1.3) mg/dL Est Cr Clr Drug Dosing mL/min Estimated GFR (MDRD) ml/min Glucose (74-106) mg/dL Calcium (8.5-10.1) mg/dL Phosphorus (2.6-4.7) mg/dL Magnesium (1.8-2.4) mg/dL Total Bilirubin (0.2-1.0) mg/dL AST (15-37) IU/L ALT (14-63) IU/L Alkaline Phosphatase (46-116) U/L Troponin I < 0.050 < 0.050 (0.000-0.056) ng/mL B-Natriuretic Peptide (<100) PG/ML Total Protein (6.4-8.2) g/dL Albumin (3.4-5.0) g/dL Globulin (2.6-4.0) g/dL Albumin/Globulin Ratio (0.9-1.6) Lipase (73-393) U/L Urine Color YELLOW Urine Appearance CLEAR Urine pH 6.5 (5.0-8.0) Ur Specific [place] 1.015 (1.001-1.035) Urine Protein 30 H (NEGATIVE) mg/dL Urine Glucose (UA) NEGATIVE (NEGATIVE) mg/dL Urine Ketones NEGATIVE (NEGATIVE) mg/dL Urine Occult Blood NEGATIVE (NEGATIVE) Urine Nitrite NEGATIVE (NEGATIVE) Urine Bilirubin NEGATIVE (NEGATIVE) Urine Urobilinogen 0.2 (<2.0) EU/dL Ur Leukocyte Esterase NEGATIVE (NEGATIVE) Urine RBC 0-1 (0-2/HPF) Urine WBC 0-1 (0-5/HPF) Ur Epithelial Cells RARE (NONE-FEW) Urine Bacteria RARE (NEGATIVE) COVID-19 (SIGRID) (NEGATIVE) 11/07/19 Range/Units 20:51 WBC (4.0-11.0) K/uL RBC (4.50-5.90) M/uL Hgb (13.0-17.0) g/dL Hct (38.0-50.0) % MCV (80.0-98.0) fL MCH (27.0-32.0) pg MCHC (31.0-37.0) g/dL RDW Std Deviation (28.0-62.0) fl RDW Coeff of Abdirizak (11.0-15.0) % Plt Count (150-400) K/uL MPV (7.40-12.00) fL Neut % (Auto) (48.0-80.0) % Lymph % (Auto) (16.0-40.0) % Todd % (Auto) (0.0-15.0) % Eos % (Auto) (0.0-7.0) % Baso % (Auto) (0.0-1.5) % Neut # (Auto) (1.4-5.7) K/uL Lymph # (Auto) (0.6-2.4) K/uL Todd # (Auto) (0.0-0.8) K/uL Eos # (Auto) (0.0-0.7) K/uL Baso # (Auto) (0.0-0.1) K/uL Nucleated RBC % /100WBC Nucleated RBCs # K/uL D-Dimer, Quantitative (0.0-0.50) mg/L FEU Lactate (0.20-2.00) mmol/L Sodium (136-148) mmol/L Potassium (3.5-5.1) mmol/L Chloride (98-107) mmol/L Carbon Dioxide (21.0-32.0) mmol/L BUN (7.0-18.0) mg/dL Creatinine (0.8-1.3) mg/dL Est Cr Clr Drug Dosing mL/min Estimated GFR (MDRD) ml/min Glucose (74-106) mg/dL Calcium (8.5-10.1) mg/dL Phosphorus 4.4 (2.6-4.7) mg/dL Magnesium 1.6 L (1.8-2.4) mg/dL Total Bilirubin (0.2-1.0) mg/dL AST (15-37) IU/L ALT (14-63) IU/L Alkaline Phosphatase (46-116) U/L Troponin I (0.000-0.056) ng/mL B-Natriuretic Peptide (<100) PG/ML Total Protein (6.4-8.2) g/dL Albumin (3.4-5.0) g/dL Globulin (2.6-4.0) g/dL Albumin/Globulin Ratio (0.9-1.6) Lipase (73-393) U/L Urine Color Urine Appearance Urine pH (5.0-8.0) Ur Specific [place] (1.001-1.035) Urine Protein (NEGATIVE) mg/dL Urine Glucose (UA) (NEGATIVE) mg/dL Urine Ketones (NEGATIVE) mg/dL Urine Occult Blood (NEGATIVE) Urine Nitrite (NEGATIVE) Urine Bilirubin (NEGATIVE) Urine Urobilinogen (<2.0) EU/dL Ur Leukocyte Esterase (NEGATIVE) Urine RBC (0-2/HPF) Urine WBC (0-5/HPF) Ur Epithelial Cells (NONE-FEW) Urine Bacteria (NEGATIVE) COVID-19 (SIGRID) (NEGATIVE) Result Diagrams: 11/07/19 14:40 11/07/19 14:40 Sepsis Event Note - Focused Exam Vital Signs: Vital Signs Temp Pulse Resp BP BP BP Pulse Ox 11/07/19 21:19 11/07/19 20:08 36.8 C 109 H 179/112 H 96 11/07/19 20:00 145/79 H 11/07/19 18:04 145/100 H 11/07/19 18:00 109 H 24 H 145/100 H 96 11/07/19 17:00 106 H 25 H 163/121 H 97 11/07/19 15:30 103 H 25 H 137/88 95 11/07/19 15:11 146/104 H 11/07/19 14:37 35.7 C L 109 H 25 H 153/105 H 96 Pulse Ox 11/07/19 21:19 96 11/07/19 20:08 11/07/19 20:00 11/07/19 18:04 11/07/19 18:00 11/07/19 17:00 11/07/19 15:30 11/07/19 15:11 11/07/19 14:37 Date Exam was Performed: 11/07/19 Time Exam was Performed: 22:47 Orders Last 24hrs: Active Orders 24 hr Category Date Time Status Admission Status [Patient Status] [ADT] Stat ADT 11/07/19 17:12 Active Blood Glucose Check, Bedside [RC] TIDAC Care 11/07/19 18:33 Active Cardiac Monitoring [RC] . DIRECTED Care 11/07/19 18:30 Active Daily Weight [Height and Weight] [RC] DAILY Care 11/07/19 18:31 Active EKG Documentation Completion [RC] STAT Care 11/07/19 14:46 Active Intake and Output Strict [RC] Q12H Care 11/07/19 18:31 Active Oxygen Therapy [RC] PRN Care 11/07/19 18:28 Active RT Aerosol Therapy [RC] ASDIRECTED Care 11/07/19 18:35 Active Telemetry Monitoring [Cardiac Monitoring] [RC] Q8H Care 11/07/19 18:10 Active Up ad Anastasia [RC] ASDIRECTED Care 11/07/19 18:28 Active VTE/DVT Education [RC] PER UNIT ROUTINE Care 11/07/19 18:28 Active Vital Signs [RC] Q4H Care 11/07/19 18:28 Active [employer] Diet [DIET] Diet 11/07/19 Dinner Active Fluid Restriction [DIET] Diet 11/07/19 Dinner Active Low Salt [Sodium Restricted Diet] [DIET] Diet 11/07/19 Dinner Active Echo Comp wo Cont [US] Urgent Exams 11/07/19 18:32 Ordered CBC WITH AUTO DIFF [HEME] AM Lab 11/08/19 05:11 Ordered COMPREHENSIVE METABOLIC PN,CMP [CHEM] AM Lab 11/08/19 05:11 Ordered GLYCOSYLATED HEMOGLOBIN,HGBA1C [CHEM] AM Lab 11/08/19 05:11 Ordered LIPID PANEL [CHEM] AM Lab 11/08/19 05:11 Ordered TSH [CHEM] AM Lab 11/08/19 05:11 Ordered Acetaminophen [Tylenol] Med 11/07/19 18:28 Active 650 mg PO Q4H PRN Albuterol/Ipratropium [DuoNeb 3.0-0.5 MG/3 ML] Med 11/07/19 18:34 Active 3 ml NEB Q4HRRT PRN Aspirin Med 11/08/19 09:00 Active 81 mg PO DAILY Furosemide [Lasix] Med 11/08/19 01:00 Active 40 mg IVPUSH Q8H Heparin Sodium Med 11/07/19 18:00 Active 5,000 units SUBCUT Q8H Insulin Aspart [NovoLOG] Med 11/08/19 07:30 Active See Protocol SUBCUT TIDAC Labetalol [Normodyne] Med 11/07/19 22:23 Active 10 mg IVPUSH Q4H PRN Nitroglycerin [Nitrostat] Med 11/07/19 14:49 Active 0.4 mg SL Q5M PRN lisinopriL [Prinivil] Med 11/08/19 09:00 Active 10 mg PO DAILY Resuscitation Status Routine Resus Stat 11/07/19 18:28 Ordered Medication Orders Acetaminophen (Tylenol) 650 mg PO Q4H PRN PRN Reason: Pain (Mild 1-3)/fever Albuterol/Ipratropium (Duoneb 3.0-0.5 Mg/3 Ml) 3 ml NEB Q4HRRT PRN PRN Reason: Dyspnea Aspirin (Aspirin) 81 mg PO DAILY CHARLIE Furosemide (Lasix) 40 mg IVPUSH Q8H CHARLIE Heparin Sodium (Porcine) (Heparin Sodium) 5,000 units SUBCUT Q8H CHARLIE Last Admin: 11/07/19 21:33 Dose: 5,000 units Documented by: DM Insulin Aspart (Novolog) 0 unit SUBCUT TIDAC CHARLIE; Protocol Labetalol HCl (Normodyne) 10 mg IVPUSH Q4H PRN; Protocol PRN Reason: Hypertension Lisinopril (Prinivil) 10 mg PO DAILY [facility] Nitroglycerin (Nitrostat) 0.4 mg SL Q5M PRN PRN Reason: Chest Pain Last Admin: 11/07/19 15:11 Dose: 0.4 mg Documented by: JASON
[2019-11-07] MEDS: Heparin Sodium 5,000 Units/ML Vial SUBCUT SCH (21:33)
[2019-11-07] MEDS ORDERED: Labetalol 100 MG/20 ML MDV IVPUSH PRN (22:23)
[2019-11-07] MEDS ORDERED: Magnesium Sulfate/Water 2 GM in Premix Bag 1 BAG IV ONE (23:08)
[2019-11-08] MEDS: Furosemide 40 MG/4 ML VIAL IVPUSH SCH ×3 (02:30→16:59)
[2019-11-08] MEDS: Heparin Sodium 5,000 Units/ML Vial SUBCUT SCH ×3 (02:30→18:26)
[2019-11-08 06:20] LABS: HEMOGLOBIN A1C 6.2 % (4.5-6.2)
[2019-11-08 06:41] LABS: BLOOD UREA NITROGEN,BUN 21 mg/dL (7.0-18.0); CARBON DIOXIDE,CO2 24.9 mmol/L (21.0-32.0); CHLORIDE,CL 97 mmol/L (98-107); GLUCOSE RANDOM 185 mg/dL (74-106); POTASSIUM,K 3.6 mmol/L (3.5-5.1); SODIUM,NA 134 mmol/L (136-148)
[2019-11-08] MEDS ORDERED: Furosemide 40 MG/4 ML VIAL IVPUSH SCH (08:00)
[2019-11-08] MEDS: Insulin Aspart 100 Units/ML 3 ML Pen SUBCUT SCH ×3 (08:02→17:05)
[2019-11-08] MEDS: Aspirin 81 MG Tab.Chew PO SCH (08:05)
[2019-11-08] MEDS: Lisinopril 10 MG Tab PO SCH (08:05)
[2019-11-08] MEDS ORDERED: Potassium Chloride 20 MEQ Tab.ER PO ONE (11:40)
[2019-11-08] MEDS ORDERED: LORazepam 2 MG/ML SDV IVPUSH PRN (11:43)
[2019-11-08] MEDS ORDERED: Magnesium Sulfate/Water 2 GM in Premix Bag 1 BAG IV ONE (12:24)
--- NOTE | 2019-11-08 12:39 | PCM.PN ---
<Jamey Diaz M - Last Filed: 11/08/19 12:34> - General Info Date of Service: 11/08/19 Subjective Update: Reports SOB and leg swelling improved. Reports urinating frequently. Denies any fevers, SOB, chest pain, nausea or vomiting. - Patient Data Vitals - Most Recent: Last Vital Signs Temp 37.0 C 11/08/19 11:00 Pulse 100 11/08/19 11:00 Resp 16 11/08/19 11:00 BP 128/78 11/08/19 11:00 Pulse Ox 95 11/08/19 11:00 Weight - Most Recent: 104.19 kg I&O - Last 24 Hours: Intake & Output 11/07/19 11/08/19 11/08/19 22:59 06:59 14:59 Intake Total 1287 Output Total 2925 Balance -1638 Lab Results Last 24 Hours: Laboratory Results - last 24 hr 11/07/19 11/07/19 11/07/19 Range/Units 14:40 14:40 14:40 WBC 7.50 (4.0-11.0) K/uL RBC 4.46 L (4.50-5.90) M/uL Hgb 14.7 (13.0-17.0) g/dL Hct 44.2 (38.0-50.0) % MCV 99.1 H (80.0-98.0) fL MCH 33.0 H (27.0-32.0) pg MCHC 33.3 (31.0-37.0) g/dL RDW Std Deviation 53.5 (28.0-62.0) fl RDW Coeff of Abdirizak 15 (11.0-15.0) % Plt Count 215 (150-400) K/uL MPV 10.90 (7.40-12.00) fL Neut % (Auto) 70.1 (48.0-80.0) % Lymph % (Auto) 18.4 (16.0-40.0) % [place] % (Auto) 10.7 (0.0-15.0) % Eos % (Auto) 0.5 (0.0-7.0) % Baso % (Auto) 0.3 (0.0-1.5) % Neut # (Auto) 5.3 (1.4-5.7) K/uL Lymph # (Auto) 1.4 (0.6-2.4) K/uL [place] # (Auto) 0.8 (0.0-0.8) K/uL Eos # (Auto) 0.0 (0.0-0.7) K/uL Baso # (Auto) 0.0 (0.0-0.1) K/uL Nucleated RBC % 0.0 /100WBC Nucleated RBCs # 0 K/uL D-Dimer, Quantitative (0.0-0.50) mg/L FEU Lactate 1.4 (0.20-2.00) mmol/L Sodium 136 (136-148) mmol/L Potassium 4.6 (3.5-5.1) mmol/L Chloride 101 (98-107) mmol/L Carbon Dioxide 22.8 (21.0-32.0) mmol/L BUN 18 (7.0-18.0) mg/dL Creatinine 1.0 (0.8-1.3) mg/dL Est Cr Clr Drug Dosing 86.80 mL/min Estimated GFR (MDRD) > 60.0 ml/min Glucose 101 (74-106) mg/dL POC Glucose (60-110) mg/dL Hemoglobin A1c (4.5-6.2) % Calcium 8.7 (8.5-10.1) mg/dL Phosphorus (2.6-4.7) mg/dL Magnesium (1.8-2.4) mg/dL Total Bilirubin 1.8 H (0.2-1.0) mg/dL AST 43 H (15-37) IU/L ALT 29 (14-63) IU/L Alkaline Phosphatase 140 H (46-116) U/L Troponin I < 0.050 (0.000-0.056) ng/mL B-Natriuretic Peptide (<100) PG/ML Total Protein 8.3 H (6.4-8.2) g/dL Albumin 3.8 (3.4-5.0) g/dL Globulin 4.5 H (2.6-4.0) g/dL Albumin/Globulin Ratio 0.8 L (0.9-1.6) Triglycerides (0-200) mg/dL Cholesterol (50-200) mg/dL LDL Cholesterol, Calc (60-180) mg/dL VLDL Cholesterol (5-55) mg/dL HDL Cholesterol (40-60) mg/dL Cholesterol/HDL Ratio (3.3-6.0) Lipase 100 (73-393) U/L TSH 3rd Generation (0.36-3.74) uIU/mL Urine Color Urine Appearance Urine pH (5.0-8.0) Ur Specific [place] (1.001-1.035) Urine Protein (NEGATIVE) mg/dL Urine Glucose (UA) (NEGATIVE) mg/dL Urine Ketones (NEGATIVE) mg/dL Urine Occult Blood (NEGATIVE) Urine Nitrite (NEGATIVE) Urine Bilirubin (NEGATIVE) Urine Urobilinogen (<2.0) EU/dL Ur Leukocyte Esterase (NEGATIVE) Urine RBC (0-2/HPF) Urine WBC (0-5/HPF) Ur Epithelial Cells (NONE-FEW) Urine Bacteria (NEGATIVE) COVID-19 (SIGRID) (NEGATIVE) 11/07/19 11/07/19 11/07/19 Range/Units 14:40 14:40 15:25 WBC (4.0-11.0) K/uL RBC (4.50-5.90) M/uL Hgb (13.0-17.0) g/dL Hct (38.0-50.0) % MCV (80.0-98.0) fL MCH (27.0-32.0) pg MCHC (31.0-37.0) g/dL RDW Std Deviation (28.0-62.0) fl RDW Coeff of Abdirizak (11.0-15.0) % Plt Count (150-400) K/uL MPV (7.40-12.00) fL Neut % (Auto) (48.0-80.0) % Lymph % (Auto) (16.0-40.0) % [place] % (Auto) (0.0-15.0) % Eos % (Auto) (0.0-7.0) % Baso % (Auto) (0.0-1.5) % Neut # (Auto) (1.4-5.7) K/uL Lymph # (Auto) (0.6-2.4) K/uL [place] # (Auto) (0.0-0.8) K/uL Eos # (Auto) (0.0-0.7) K/uL Baso # (Auto) (0.0-0.1) K/uL Nucleated RBC % /100WBC Nucleated RBCs # K/uL D-Dimer, Quantitative 2.24 H (0.0-0.50) mg/L FEU Lactate (0.20-2.00) mmol/L Sodium (136-148) mmol/L Potassium (3.5-5.1) mmol/L Chloride (98-107) mmol/L Carbon Dioxide (21.0-32.0) mmol/L BUN (7.0-18.0) mg/dL Creatinine (0.8-1.3) mg/dL Est Cr Clr Drug Dosing mL/min Estimated GFR (MDRD) ml/min Glucose (74-106) mg/dL POC Glucose (60-110) mg/dL Hemoglobin A1c (4.5-6.2) % Calcium (8.5-10.1) mg/dL Phosphorus (2.6-4.7) mg/dL Magnesium (1.8-2.4) mg/dL Total Bilirubin (0.2-1.0) mg/dL AST (15-37) IU/L ALT (14-63) IU/L Alkaline Phosphatase (46-116) U/L Troponin I (0.000-0.056) ng/mL B-Natriuretic Peptide 2024 H (<100) PG/ML Total Protein (6.4-8.2) g/dL Albumin (3.4-5.0) g/dL Globulin (2.6-4.0) g/dL Albumin/Globulin Ratio (0.9-1.6) Triglycerides (0-200) mg/dL Cholesterol (50-200) mg/dL LDL Cholesterol, Calc (60-180) mg/dL VLDL Cholesterol (5-55) mg/dL HDL Cholesterol (40-60) mg/dL Cholesterol/HDL Ratio (3.3-6.0) Lipase (73-393) U/L TSH 3rd Generation (0.36-3.74) uIU/mL Urine Color Urine Appearance Urine pH (5.0-8.0) Ur Specific [place] (1.001-1.035) Urine Protein (NEGATIVE) mg/dL Urine Glucose (UA) (NEGATIVE) mg/dL Urine Ketones (NEGATIVE) mg/dL Urine Occult Blood (NEGATIVE) Urine Nitrite (NEGATIVE) Urine Bilirubin (NEGATIVE) Urine Urobilinogen (<2.0) EU/dL Ur Leukocyte Esterase (NEGATIVE) Urine RBC (0-2/HPF) Urine WBC (0-5/HPF) Ur Epithelial Cells (NONE-FEW) Urine Bacteria (NEGATIVE) COVID-19 (SIGRID) NEGATIVE (NEGATIVE) 11/07/19 11/07/19 11/07/19 Range/Units 17:25 17:54 20:51 WBC (4.0-11.0) K/uL RBC (4.50-5.90) M/uL Hgb (13.0-17.0) g/dL Hct (38.0-50.0) % MCV (80.0-98.0) fL MCH (27.0-32.0) pg MCHC (31.0-37.0) g/dL RDW Std Deviation (28.0-62.0) fl RDW Coeff of Abdirizak (11.0-15.0) % Plt Count (150-400) K/uL MPV (7.40-12.00) fL Neut % (Auto) (48.0-80.0) % Lymph % (Auto) (16.0-40.0) % [place] % (Auto) (0.0-15.0) % Eos % (Auto) (0.0-7.0) % Baso % (Auto) (0.0-1.5) % Neut # (Auto) (1.4-5.7) K/uL Lymph # (Auto) (0.6-2.4) K/uL [place] # (Auto) (0.0-0.8) K/uL Eos # (Auto) (0.0-0.7) K/uL Baso # (Auto) (0.0-0.1) K/uL Nucleated RBC % /100WBC Nucleated RBCs # K/uL D-Dimer, Quantitative (0.0-0.50) mg/L FEU Lactate (0.20-2.00) mmol/L Sodium (136-148) mmol/L Potassium (3.5-5.1) mmol/L Chloride (98-107) mmol/L Carbon Dioxide (21.0-32.0) mmol/L BUN (7.0-18.0) mg/dL Creatinine (0.8-1.3) mg/dL Est Cr Clr Drug Dosing mL/min Estimated GFR (MDRD) ml/min Glucose (74-106) mg/dL POC Glucose (60-110) mg/dL Hemoglobin A1c (4.5-6.2) % Calcium (8.5-10.1) mg/dL Phosphorus (2.6-4.7) mg/dL Magnesium (1.8-2.4) mg/dL Total Bilirubin (0.2-1.0) mg/dL AST (15-37) IU/L ALT (14-63) IU/L Alkaline Phosphatase (46-116) U/L Troponin I < 0.050 < 0.050 (0.000-0.056) ng/mL B-Natriuretic Peptide (<100) PG/ML Total Protein (6.4-8.2) g/dL Albumin (3.4-5.0) g/dL Globulin (2.6-4.0) g/dL Albumin/Globulin Ratio (0.9-1.6) Triglycerides (0-200) mg/dL Cholesterol (50-200) mg/dL LDL Cholesterol, Calc (60-180) mg/dL VLDL Cholesterol (5-55) mg/dL HDL Cholesterol (40-60) mg/dL Cholesterol/HDL Ratio (3.3-6.0) Lipase (73-393) U/L TSH 3rd Generation (0.36-3.74) uIU/mL Urine Color YELLOW Urine Appearance CLEAR Urine pH 6.5 (5.0-8.0) Ur Specific [place] 1.015 (1.001-1.035) Urine Protein 30 H (NEGATIVE) mg/dL Urine Glucose (UA) NEGATIVE (NEGATIVE) mg/dL Urine Ketones NEGATIVE (NEGATIVE) mg/dL Urine Occult Blood NEGATIVE (NEGATIVE) Urine Nitrite NEGATIVE (NEGATIVE) Urine Bilirubin NEGATIVE (NEGATIVE) Urine Urobilinogen 0.2 (<2.0) EU/dL Ur Leukocyte Esterase NEGATIVE (NEGATIVE) Urine RBC 0-1 (0-2/HPF) Urine WBC 0-1 (0-5/HPF) Ur Epithelial Cells RARE (NONE-FEW) Urine Bacteria RARE (NEGATIVE) COVID-19 (SIGRID) (NEGATIVE) 11/07/19 11/08/19 11/08/19 Range/Units 20:51 05:25 05:25 WBC 5.01 (4.0-11.0) K/uL RBC 4.30 L (4.50-5.90) M/uL Hgb 14.0 (13.0-17.0) g/dL Hct 42.2 (38.0-50.0) % MCV 98.1 H (80.0-98.0) fL MCH 32.6 H (27.0-32.0) pg MCHC 33.2 (31.0-37.0) g/dL RDW Std Deviation 52.2 (28.0-62.0) fl RDW Coeff of Abdirizak 15 (11.0-15.0) % Plt Count 198 (150-400) K/uL MPV 11.00 (7.40-12.00) fL Neut % (Auto) 89.0 H (48.0-80.0) % Lymph % (Auto) 9.2 L (16.0-40.0) % [place] % (Auto) 1.8 (0.0-15.0) % Eos % (Auto) 0.0 (0.0-7.0) % Baso % (Auto) 0.0 (0.0-1.5) % Neut # (Auto) 4.5 (1.4-5.7) K/uL Lymph # (Auto) 0.5 L (0.6-2.4) K/uL [place] # (Auto) 0.1 (0.0-0.8) K/uL Eos # (Auto) 0.0 (0.0-0.7) K/uL Baso # (Auto) 0.0 (0.0-0.1) K/uL Nucleated RBC % 0.0 /100WBC Nucleated RBCs # 0 K/uL D-Dimer, Quantitative (0.0-0.50) mg/L FEU Lactate (0.20-2.00) mmol/L Sodium 134 L (136-148) mmol/L Potassium 3.6 (3.5-5.1) mmol/L Chloride 97 L (98-107) mmol/L Carbon Dioxide 24.9 (21.0-32.0) mmol/L BUN 21 H (7.0-18.0) mg/dL Creatinine 1.0 (0.8-1.3) mg/dL Est Cr Clr Drug Dosing 86.80 mL/min Estimated GFR (MDRD) > 60.0 ml/min Glucose 185 H (74-106) mg/dL POC Glucose (60-110) mg/dL Hemoglobin A1c (4.5-6.2) % Calcium 8.3 L (8.5-10.1) mg/dL Phosphorus 4.4 (2.6-4.7) mg/dL Magnesium 1.6 L (1.8-2.4) mg/dL Total Bilirubin 2.1 H (0.2-1.0) mg/dL AST 32 (15-37) IU/L ALT 27 (14-63) IU/L Alkaline Phosphatase 136 H (46-116) U/L Troponin I (0.000-0.056) ng/mL B-Natriuretic Peptide (<100) PG/ML Total Protein 7.9 (6.4-8.2) g/dL Albumin 3.6 (3.4-5.0) g/dL Globulin 4.3 H (2.6-4.0) g/dL Albumin/Globulin Ratio 0.8 L (0.9-1.6) Triglycerides 47 (0-200) mg/dL Cholesterol 126 (50-200) mg/dL LDL Cholesterol, Calc 72 (60-180) mg/dL VLDL Cholesterol 9 (5-55) mg/dL HDL Cholesterol 45 (40-60) mg/dL Cholesterol/HDL Ratio 2.8 L (3.3-6.0) Lipase (73-393) U/L TSH 3rd Generation 0.92 (0.36-3.74) uIU/mL Urine Color Urine Appearance Urine pH (5.0-8.0) Ur Specific [place] (1.001-1.035) Urine Protein (NEGATIVE) mg/dL Urine Glucose (UA) (NEGATIVE) mg/dL Urine Ketones (NEGATIVE) mg/dL Urine Occult Blood (NEGATIVE) Urine Nitrite (NEGATIVE) Urine Bilirubin (NEGATIVE) Urine Urobilinogen (<2.0) EU/dL Ur Leukocyte Esterase (NEGATIVE) Urine RBC (0-2/HPF) Urine WBC (0-5/HPF) Ur Epithelial Cells (NONE-FEW) Urine Bacteria (NEGATIVE) COVID-19 (SIGRID) (NEGATIVE) 11/08/19 11/08/19 11/08/19 Range/Units 05:25 05:25 06:24 WBC (4.0-11.0) K/uL RBC (4.50-5.90) M/uL Hgb (13.0-17.0) g/dL Hct (38.0-50.0) % MCV (80.0-98.0) fL MCH (27.0-32.0) pg MCHC (31.0-37.0) g/dL RDW Std Deviation (28.0-62.0) fl RDW Coeff of Abdirizak (11.0-15.0) % Plt Count (150-400) K/uL MPV (7.40-12.00) fL Neut % (Auto) (48.0-80.0) % Lymph % (Auto) (16.0-40.0) % [place] % (Auto) (0.0-15.0) % Eos % (Auto) (0.0-7.0) % Baso % (Auto) (0.0-1.5) % Neut # (Auto) (1.4-5.7) K/uL Lymph # (Auto) (0.6-2.4) K/uL [place] # (Auto) (0.0-0.8) K/uL Eos # (Auto) (0.0-0.7) K/uL Baso # (Auto) (0.0-0.1) K/uL Nucleated RBC % /100WBC Nucleated RBCs # K/uL D-Dimer, Quantitative (0.0-0.50) mg/L FEU Lactate (0.20-2.00) mmol/L Sodium (136-148) mmol/L Potassium (3.5-5.1) mmol/L Chloride (98-107) mmol/L Carbon Dioxide (21.0-32.0) mmol/L BUN (7.0-18.0) mg/dL Creatinine (0.8-1.3) mg/dL Est Cr Clr Drug Dosing mL/min Estimated GFR (MDRD) ml/min Glucose (74-106) mg/dL POC Glucose 177 H (60-110) mg/dL Hemoglobin A1c 6.2 (4.5-6.2) % Calcium (8.5-10.1) mg/dL Phosphorus (2.6-4.7) mg/dL Magnesium 1.7 L (1.8-2.4) mg/dL Total Bilirubin (0.2-1.0) mg/dL AST (15-37) IU/L ALT (14-63) IU/L Alkaline Phosphatase (46-116) U/L Troponin I (0.000-0.056) ng/mL B-Natriuretic Peptide (<100) PG/ML Total Protein (6.4-8.2) g/dL Albumin (3.4-5.0) g/dL Globulin (2.6-4.0) g/dL Albumin/Globulin Ratio (0.9-1.6) Triglycerides (0-200) mg/dL Cholesterol (50-200) mg/dL LDL Cholesterol, Calc (60-180) mg/dL VLDL Cholesterol (5-55) mg/dL HDL Cholesterol (40-60) mg/dL Cholesterol/HDL Ratio (3.3-6.0) Lipase (73-393) U/L TSH 3rd Generation (0.36-3.74) uIU/mL Urine Color Urine Appearance Urine pH (5.0-8.0) Ur Specific [place] (1.001-1.035) Urine Protein (NEGATIVE) mg/dL Urine Glucose (UA) (NEGATIVE) mg/dL Urine Ketones (NEGATIVE) mg/dL Urine Occult Blood (NEGATIVE) Urine Nitrite (NEGATIVE) Urine Bilirubin (NEGATIVE) Urine Urobilinogen (<2.0) EU/dL Ur Leukocyte Esterase (NEGATIVE) Urine RBC (0-2/HPF) Urine WBC (0-5/HPF) Ur Epithelial Cells (NONE-FEW) Urine Bacteria (NEGATIVE) COVID-19 (SIGRID) (NEGATIVE) 11/08/19 Range/Units 11:59 WBC (4.0-11.0) K/uL RBC (4.50-5.90) M/uL Hgb (13.0-17.0) g/dL Hct (38.0-50.0) % MCV (80.0-98.0) fL MCH (27.0-32.0) pg MCHC (31.0-37.0) g/dL RDW Std Deviation (28.0-62.0) fl RDW Coeff of Abdirizak (11.0-15.0) % Plt Count (150-400) K/uL MPV (7.40-12.00) fL Neut % (Auto) (48.0-80.0) % Lymph % (Auto) (16.0-40.0) % [place] % (Auto) (0.0-15.0) % Eos % (Auto) (0.0-7.0) % Baso % (Auto) (0.0-1.5) % Neut # (Auto) (1.4-5.7) K/uL Lymph # (Auto) (0.6-2.4) K/uL [place] # (Auto) (0.0-0.8) K/uL Eos # (Auto) (0.0-0.7) K/uL Baso # (Auto) (0.0-0.1) K/uL Nucleated RBC % /100WBC Nucleated RBCs # K/uL D-Dimer, Quantitative (0.0-0.50) mg/L FEU Lactate (0.20-2.00) mmol/L Sodium (136-148) mmol/L Potassium (3.5-5.1) mmol/L Chloride (98-107) mmol/L Carbon Dioxide (21.0-32.0) mmol/L BUN (7.0-18.0) mg/dL Creatinine (0.8-1.3) mg/dL Est Cr Clr Drug Dosing mL/min Estimated GFR (MDRD) ml/min Glucose (74-106) mg/dL POC Glucose 248 H (60-110) mg/dL Hemoglobin A1c (4.5-6.2) % Calcium (8.5-10.1) mg/dL Phosphorus (2.6-4.7) mg/dL Magnesium (1.8-2.4) mg/dL Total Bilirubin (0.2-1.0) mg/dL AST (15-37) IU/L ALT (14-63) IU/L Alkaline Phosphatase (46-116) U/L Troponin I (0.000-0.056) ng/mL B-Natriuretic Peptide (<100) PG/ML Total Protein (6.4-8.2) g/dL Albumin (3.4-5.0) g/dL Globulin (2.6-4.0) g/dL Albumin/Globulin Ratio (0.9-1.6) Triglycerides (0-200) mg/dL Cholesterol (50-200) mg/dL LDL Cholesterol, Calc (60-180) mg/dL VLDL Cholesterol (5-55) mg/dL HDL Cholesterol (40-60) mg/dL Cholesterol/HDL Ratio (3.3-6.0) Lipase (73-393) U/L TSH 3rd Generation (0.36-3.74) uIU/mL Urine Color Urine Appearance Urine pH (5.0-8.0) Ur Specific [place] (1.001-1.035) Urine Protein (NEGATIVE) mg/dL Urine Glucose (UA) (NEGATIVE) mg/dL Urine Ketones (NEGATIVE) mg/dL Urine Occult Blood (NEGATIVE) Urine Nitrite (NEGATIVE) Urine Bilirubin (NEGATIVE) Urine Urobilinogen (<2.0) EU/dL Ur Leukocyte Esterase (NEGATIVE) Urine RBC (0-2/HPF) Urine WBC (0-5/HPF) Ur Epithelial Cells (NONE-FEW) Urine Bacteria (NEGATIVE) COVID-19 (SIGRID) (NEGATIVE) Med Orders - Current: Current Medications Acetaminophen (Tylenol) 650 mg PO Q4H PRN PRN Reason: Pain (Mild 1-3)/fever Albuterol/Ipratropium (Duoneb 3.0-0.5 Mg/3 Ml) 3 ml NEB Q4HRRT PRN PRN Reason: Dyspnea Last Admin: 11/08/19 08:20 Dose: 3 ml Documented by: Aspirin (Aspirin) 81 mg PO DAILY [facility] Last Admin: 11/08/19 08:05 Dose: 81 mg Documented by: Atorvastatin Calcium (Lipitor) 40 mg PO BEDTIME [facility] Benzocaine/Menthol (Cepacol Sore Throat) 1 lozenge MUCMEM Q2H PRN PRN Reason: Cough Furosemide (Lasix) 40 mg IVPUSH Q8H [facility] Last Admin: 11/08/19 08:07 Dose: 40 mg Documented by: Heparin Sodium (Porcine) (Heparin Sodium) 5,000 units SUBCUT Q8H [facility] Last Admin: 11/08/19 10:39 Dose: 5,000 units Documented by: Magnesium Sulfate 2 gm/ Premix 50 mls @ 50 mls/hr IV ONETIME ONE Stop: 11/08/19 13:23 Insulin Aspart (Novolog) 0 unit SUBCUT TIDAC [facility]; Protocol Last Admin: 11/08/19 12:11 Dose: 2 unit Documented by: Labetalol HCl (Normodyne) 10 mg IVPUSH Q4H PRN; Protocol PRN Reason: Hypertension Lisinopril (Prinivil) 10 mg PO DAILY [facility] Last Admin: 11/08/19 08:05 Dose: 10 mg Documented by: Lorazepam (Ativan) 0 mg IVPUSH Q4H PRN; Protocol PRN Reason: Agitation Nitroglycerin (Nitrostat) 0.4 mg SL Q5M PRN PRN Reason: Chest Pain Last Admin: 11/07/19 15:11 Dose: 0.4 mg Documented by: Discontinued Medications Aspirin (Aspirin) 324 mg PO ONETIME ONE Stop: 11/07/19 14:50 Last Admin: 11/07/19 15:10 Dose: 324 mg Documented by: Furosemide (Lasix) 40 mg IVPUSH NOW ONE Stop: 11/07/19 16:24 Last Admin: 11/07/19 17:02 Dose: 40 mg Documented by: Furosemide (Lasix) 40 mg IVPUSH Q8H [facility] Magnesium Sulfate 2 gm/ Premix 50 mls @ 50 mls/hr IV ONETIME ONE Stop: 11/08/19 00:07 Last Admin: 11/07/19 23:40 Dose: 50 mls/hr Documented by: Iopamidol (Isovue Multipack-370 (76%)) 100 ml IVPUSH ONETIME ONE Stop: 11/07/19 16:33 Last Admin: 11/07/19 16:33 Dose: 100 ml Documented by: Lisinopril (Prinivil) 10 mg PO ONETIME ONE Stop: 11/07/19 17:07 Last Admin: 11/07/19 18:04 Dose: 10 mg Documented by: Methylprednisolone Sodium Succinate (Solu-Medrol) 125 mg IVPUSH ONETIME ONE Stop: 11/07/19 14:55 Last Admin: 11/07/19 15:09 Dose: 125 mg Documented by: Potassium Chloride (Klor-Con M20) 40 meq PO ONETIME ONE Stop: 11/08/19 11:41 Last Admin: 11/08/19 12:12 Dose: 40 meq Documented by: - Exam General: Alert, Oriented, Cooperative Lungs: Other (quiet breath sounds b/l) Cardiovascular: Regular Rate, Regular Rhythm GI/Abdominal Exam: Normal Bowel Sounds, Soft, No Distention, Distended. No: Guarding, Tender Extremities: Other (trace pitting edema b/l) Sepsis Event Note - Evaluation Sepsis Screening Result: No Definite Risk - Focused Exam Vital Signs: Vital Signs Temp Pulse Resp BP BP Pulse Ox 11/08/19 11:00 37.0 C 100 16 128/78 95 11/08/19 08:05 143/101 H 11/08/19 07:37 36.8 C 104 H 20 143/101 H 96 11/08/19 04:19 36.2 C 106 H 24 H 158/108 H 96 Date Exam was Performed: 11/08/19 Time Exam was Performed: 12:34 - Problem List Review Problem List Initiated/Reviewed/Updated: Yes - My Orders Last 24 Hours: My Active Orders 11/07/19 Dinner [employer] [employer] Diet [DIET] Fluid Restriction [DIET] Low Salt [Sodium Restricted Diet] [DIET] 11/07/19 18:00 Heparin Sodium 5,000 units SUBCUT Q8H 11/07/19 18:10 Telemetry Monitoring [Cardiac Monitoring] [RC] Q8H 11/07/19 18:28 Oxygen Therapy [RC] PRN Up ad Anastasia [RC] ASDIRECTED VTE/DVT Education [RC] PER UNIT ROUTINE Vital Signs [RC] Q4H Acetaminophen [Tylenol] 650 mg PO Q4H PRN Resuscitation Status Routine 11/07/19 18:30 Cardiac Monitoring [RC] . DIRECTED 11/07/19 18:31 Daily Weight [Height and Weight] [RC] DAILY Intake and Output Strict [RC] Q12H 11/07/19 18:32 Echo Comp wo Cont [US] Urgent 11/07/19 18:33 Blood Glucose Check, Bedside [RC] TIDAC 11/07/19 18:34 Albuterol/Ipratropium [DuoNeb 3.0-0.5 MG/3 ML] 3 ml NEB Q4HRRT PRN 11/07/19 18:35 RT Aerosol Therapy [RC] ASDIRECTED 11/08/19 07:30 Insulin Aspart [NovoLOG] See Protocol SUBCUT TIDAC 11/08/19 09:00 Aspirin 81 mg PO DAILY lisinopriL [Prinivil] 10 mg PO DAILY 11/08/19 11:40 Benzocaine/Cetylpyrd/Menthol [Cepacol Sore Throat] 1 lozenge MUCMEM Q2H PRN 11/08/19 11:42 CIWAA Assessment [RC] Q4H 11/08/19 11:43 LORazepam [Ativan] See Protocol IVPUSH Q4H PRN 11/08/19 12:24 Magnesium Sulfate/Water [Magnesium Sulfate in Water Premix] 2 gm Premix Bag 1 bag IV ONETIME 11/08/19 21:00 atorvaSTATin [Lipitor] 40 mg PO BEDTIME - Plan Plan:: Assessment and Plan: 1. CHF exacerbation: - Patient in negative fluid balance. Continue IV lasix 40 mg TID. ECHO ordered but unavailable over weekend. - Continue strict I/O's, daily standing weights, fluid restrict < 2L and low salt < 2 g per day. - CXR showed small right pleural effusion. 2. Chest pain, resolved: - Troponins were trended and negative x3. Patient on aspirin and statin. - EKG on admission showed sinus tachycardia with prolonged QT interval. - CT angio negative for pulmonary embolism, showed small right pleural and nodule in RML. 3. Hypertension: - Will start lisinopril 10 mg qd. Will continue to monitor. 4. Hypomagnesemia: - Replete with IV mag sulfate and recheck with AM labs. 5. Alcohol abuse: - IV ativan q4 prn CIWAA protocol. 6. Diabetes mellitus type 2: - ADA diet, SSI, glucose checks TIDAC. 7. Right middle lobe nodule: - Reviewed CT chest results with patient and recommend repeat CT chest w/o contrast in 6 months. 8. DVT prophylaxis: heparin. <Alexx Jenkins - Last Filed: 11/10/19 19:12> - General Info Subjective Update: I have seen and evaluated the patient and agree with the residents note unless specified in my note - Patient Data Vitals - Most Recent: Last Vital Signs Temp 36.6 C 11/10/19 08:00 Pulse 87 11/10/19 08:20 Resp 16 11/10/19 08:00 BP 115/72 11/10/19 08:21 Pulse Ox 92 L 11/10/19 08:00 I&O - Last 24 Hours: Intake & Output 08/10/20 08/10/20 08/10/20 06:59 14:59 22:59 Intake Total 420 Output Total 2700 Balance -2280 Lab Results Last 24 Hours: Laboratory Results - last 24 hr 11/10/19 11/10/19 11/10/19 Range/Units 05:30 05:30 06:25 WBC 7.24 (4.0-11.0) K/uL RBC 4.73 (4.50-5.90) M/uL Hgb 15.7 (13.0-17.0) g/dL Hct 46.4 (38.0-50.0) % MCV 98.1 H (80.0-98.0) fL MCH 33.2 H (27.0-32.0) pg MCHC 33.8 (31.0-37.0) g/dL RDW Std Deviation 49.8 (28.0-62.0) fl RDW Coeff of Abdirizak 14 (11.0-15.0) % Plt Count 193 (150-400) K/uL MPV 10.60 (7.40-12.00) fL Neut % (Auto) 67.8 (48.0-80.0) % Lymph % (Auto) 21.0 (16.0-40.0) % [place] % (Auto) 10.6 (0.0-15.0) % Eos % (Auto) 0.3 (0.0-7.0) % Baso % (Auto) 0.3 (0.0-1.5) % Neut # (Auto) 4.9 (1.4-5.7) K/uL Lymph # (Auto) 1.5 (0.6-2.4) K/uL [place] # (Auto) 0.8 (0.0-0.8) K/uL Eos # (Auto) 0.0 (0.0-0.7) K/uL Baso # (Auto) 0.0 (0.0-0.1) K/uL Sodium 137 (136-148) mmol/L Potassium 3.5 (3.5-5.1) mmol/L Chloride 96 L (98-107) mmol/L Carbon Dioxide 34.1 H (21.0-32.0) mmol/L BUN 33 H (7.0-18.0) mg/dL Creatinine 1.1 (0.8-1.3) mg/dL Est Cr Clr Drug Dosing 78.91 mL/min Estimated GFR (MDRD) > 60.0 ml/min Glucose 123 H (74-106) mg/dL POC Glucose 113 H (60-110) mg/dL Calcium 8.7 (8.5-10.1) mg/dL Phosphorus 3.5 (2.6-4.7) mg/dL Magnesium 1.5 L (1.8-2.4) mg/dL Med Orders - Current: Current Medications Discontinued Medications Acetaminophen (Tylenol) 650 mg PO Q4H PRN PRN Reason: Pain (Mild 1-3)/fever Last Admin: 11/09/19 06:44 Dose: 650 mg Documented by: Albuterol/Ipratropium (Duoneb 3.0-0.5 Mg/3 Ml) 3 ml NEB Q4HRRT PRN PRN Reason: Dyspnea Last Admin: 11/08/19 08:20 Dose: 3 ml Documented by: Aspirin (Aspirin) 324 mg PO ONETIME ONE Stop: 11/07/19 14:50 Last Admin: 11/07/19 15:10 Dose: 324 mg Documented by: Aspirin (Aspirin) 81 mg PO DAILY [facility] Last Admin: 11/10/19 08:20 Dose: 81 mg Documented by: Atorvastatin Calcium (Lipitor) 40 mg PO BEDTIME [facility] Last Admin: 11/09/19 20:41 Dose: 40 mg Documented by: Benzocaine/Menthol (Cepacol Sore Throat) 1 lozenge MUCMEM Q2H PRN PRN Reason: Cough Last Admin: 11/09/19 20:41 Dose: 1 lozenge Documented by: Carvedilol (Coreg) 3.125 mg PO BID [facility] Last Admin: 11/10/19 08:20 Dose: 3.125 mg Documented by: Furosemide (Lasix) 40 mg IVPUSH NOW ONE Stop: 11/07/19 16:24 Last Admin: 11/07/19 17:02 Dose: 40 mg Documented by: Furosemide (Lasix) 40 mg IVPUSH Q8H [facility] Furosemide (Lasix) 40 mg IVPUSH Q8H [facility] Last Admin: 11/09/19 16:13 Dose: 40 mg Documented by: Furosemide (Lasix) 40 mg IVPUSH Q12H [facility] Last Admin: 11/10/19 03:20 Dose: 40 mg Documented by: Guaifenesin/Codeine Phosphate (Robitussin Ac) 5 ml PO ONETIME ONE Stop: 11/08/19 15:01 Last Admin: 11/08/19 15:56 Dose: 5 ml Documented by: Heparin Sodium (Porcine) (Heparin Sodium) 5,000 units SUBCUT Q8H [facility] Last Admin: 11/10/19 10:44 Dose: 5,000 units Documented by: Magnesium Sulfate 2 gm/ Premix 50 mls @ 50 mls/hr IV ONETIME ONE Stop: 11/08/19 00:07 Last Admin: 11/07/19 23:40 Dose: 50 mls/hr Documented by: Magnesium Sulfate 2 gm/ Premix 50 mls @ 50 mls/hr IV ONETIME ONE Stop: 11/08/19 13:23 Last Admin: 11/08/19 13:15 Dose: 50 mls/hr Documented by: Magnesium Sulfate 2 gm/ Premix 50 mls @ 50 mls/hr IV ONETIME ONE Stop: 11/10/19 08:18 Last Admin: 11/10/19 08:15 Dose: 50 mls/hr Documented by: Magnesium Sulfate 2 gm/ Premix 50 mls @ 50 mls/hr IV ONETIME ONE Stop: 11/10/19 11:35 Last Admin: 11/10/19 11:22 Dose: 50 mls/hr Documented by: Insulin Aspart (Novolog) 0 unit SUBCUT TIDAC [facility]; Protocol Last Admin: 11/10/19 06:48 Dose: Not Given Documented by: Iopamidol (Isovue Multipack-370 (76%)) 100 ml IVPUSH ONETIME ONE Stop: 11/07/19 16:33 Last Admin: 11/07/19 16:33 Dose: 100 ml Documented by: Labetalol HCl (Normodyne) 10 mg IVPUSH Q4H PRN; Protocol PRN Reason: Hypertension Lisinopril (Prinivil) 10 mg PO ONETIME ONE Stop: 11/07/19 17:07 Last Admin: 11/07/19 18:04 Dose: 10 mg Documented by: Lisinopril (Prinivil) 10 mg PO DAILY [facility] Last Admin: 11/10/19 08:21 Dose: 10 mg Documented by: Lorazepam (Ativan) 0 mg IVPUSH Q4H PRN; Protocol PRN Reason: Agitation Magnesium Oxide (Magnesium Oxide) 800 mg PO ONETIME ONE Stop: 11/09/19 17:08 Last Admin: 11/09/19 17:43 Dose: 800 mg Documented by: Methylprednisolone Sodium Succinate (Solu-Medrol) 125 mg IVPUSH ONETIME ONE Stop: 11/07/19 14:55 Last Admin: 11/07/19 15:09 Dose: 125 mg Documented by: Nitroglycerin (Nitrostat) 0.4 mg SL Q5M PRN PRN Reason: Chest Pain Last Admin: 11/07/19 15:11 Dose: 0.4 mg Documented by: Potassium Chloride (Klor-Con M20) 40 meq PO ONETIME ONE Stop: 11/08/19 11:41 Last Admin: 11/08/19 12:12 Dose: 40 meq Documented by: Potassium Chloride (Klor-Con M20) 40 meq PO ONETIME ONE Stop: 11/10/19 10:37 Last Admin: 11/10/19 11:22 Dose: 40 meq Documented by: Sepsis Event Note - Focused Exam Vital Signs: Vital Signs Temp Pulse Pulse Resp BP BP Pulse Ox 11/10/19 08:21 115/72 11/10/19 08:20 87 115/72 11/10/19 08:00 36.6 C 87 16 115/72 92 L Date Exam was Performed: 11/10/19 Time Exam was Performed: 19:12 - Problem List & Annotations (1) Borderline type 2 diabetes mellitus SNOMED Code(s): 805162726 Code(s): R73.03 - PREDIABETES Status: Acute (2) CHF (congestive heart failure) SNOMED Code(s): 53244158 Code(s): I50.9 - HEART FAILURE, UNSPECIFIED Status: Acute Qualifiers: Heart failure type: unspecified Heart failure chronicity: unspecified Qualified Code(s): I50.9 - Heart failure, unspecified (3) COPD (chronic obstructive pulmonary disease) SNOMED Code(s): 88181925 Code(s): J44.9 - CHRONIC OBSTRUCTIVE PULMONARY DISEASE, UNSPECIFIED Status: Acute (4) Chest pain, rule out acute myocardial infarction SNOMED Code(s): 81676057 Code(s): R07.9 - CHEST PAIN, UNSPECIFIED Status: Acute (5) Noncompliance with medication regimen SNOMED Code(s): 578140381 Code(s): Z91.14 - PATIENT'S OTHER NONCOMPLIANCE WITH MEDICATION REGIMEN Status: Acute (6) Uncontrolled hypertension SNOMED Code(s): 00508277, 33810223 Code(s): I10 - ESSENTIAL (PRIMARY) HYPERTENSION Status: Acute
[2019-11-08] MEDS ORDERED: Codeine/guaiFENesin 10-100 MG/5 ML Syrup 5 ML Cup PO ONE (15:00)
[2019-11-08] MEDS: atorvaSTATin 40 MG Tab PO SCH (22:22)
[2019-11-08] MEDS: Benzocaine/Cetylpyridinium/Menthol Lozenge MUCMEM PRN (22:22)
[2019-11-09] MEDS: Benzocaine/Cetylpyridinium/Menthol Lozenge MUCMEM PRN ×7 (00:22→20:41)
[2019-11-09] MEDS: Furosemide 40 MG/4 ML VIAL IVPUSH SCH ×3 (01:40→16:13)
[2019-11-09] MEDS: Heparin Sodium 5,000 Units/ML Vial SUBCUT SCH ×3 (01:41→17:44)
[2019-11-09 06:48] LABS: BLOOD UREA NITROGEN,BUN 31 mg/dL (7.0-18.0); CARBON DIOXIDE,CO2 30.9 mmol/L (21.0-32.0); CHLORIDE,CL 97 mmol/L (98-107); GLUCOSE RANDOM 109 mg/dL (74-106); POTASSIUM,K 3.8 mmol/L (3.5-5.1); SODIUM,NA 135 mmol/L (136-148)
[2019-11-09] MEDS: Insulin Aspart 100 Units/ML 3 ML Pen SUBCUT SCH ×3 (08:04→17:43)
[2019-11-09] MEDS: Lisinopril 10 MG Tab PO SCH (09:27)
[2019-11-09] MEDS: Aspirin 81 MG Tab.Chew PO SCH (09:27)
--- NOTE | 2019-11-09 11:58 | PCM.PN ---
- General Info Date of Service: 11/09/19 Admission Dx/Problem (Free Text): Admission Diagnosis/Problem Admission Diagnosis/Problem Chest pain, rule out acute myocardial infarction Subjective Update: Reports SOB and leg swelling improved. Denies any fevers, SOB, chest pain, nausea or vomiting. wants to see social service to apply for medicare. tele showed cocern for possible A flutter, but EKG shows sinus rhythm - Review of Systems General: Denies: Fever, Weakness, Fatigue Pulmonary: Denies: Shortness of Breath, Pleuritic Chest Pain Cardiovascular: Denies: Chest Pain, Palpitations Gastrointestinal: Denies: Abdominal Pain, Constipation Genitourinary: Denies: Dysuria, Frequency, Burning Musculoskeletal: Denies: Neck Pain, Shoulder Pain, Arm Pain, Hand Pain - Patient Data Vitals - Most Recent: Last Vital Signs Temp 36.9 C 11/09/19 08:00 Pulse 106 H 11/09/19 08:00 Resp 18 11/09/19 08:00 BP 137/90 11/09/19 09:27 Pulse Ox 95 11/09/19 08:00 Weight - Most Recent: 97.704 kg I&O - Last 24 Hours: Intake & Output 11/08/19 11/09/19 11/09/19 22:59 06:59 14:59 Intake Total 820 1280 Output Total 2630 3485 Balance -1810 -5805 Lab Results Last 24 Hours: Laboratory Results - last 24 hr 11/08/19 11/08/19 11/08/19 Range/Units 05:25 11:59 17:03 WBC (4.0-11.0) K/uL RBC (4.50-5.90) M/uL Hgb (13.0-17.0) g/dL Hct (38.0-50.0) % MCV (80.0-98.0) fL MCH (27.0-32.0) pg MCHC (31.0-37.0) g/dL RDW Std Deviation (28.0-62.0) fl RDW Coeff of Abdirizak (11.0-15.0) % Plt Count (150-400) K/uL MPV (7.40-12.00) fL Neut % (Auto) (48.0-80.0) % Lymph % (Auto) (16.0-40.0) % Dale % (Auto) (0.0-15.0) % Eos % (Auto) (0.0-7.0) % Baso % (Auto) (0.0-1.5) % Neut # (Auto) (1.4-5.7) K/uL Lymph # (Auto) (0.6-2.4) K/uL Dale # (Auto) (0.0-0.8) K/uL Eos # (Auto) (0.0-0.7) K/uL Baso # (Auto) (0.0-0.1) K/uL Sodium (136-148) mmol/L Potassium (3.5-5.1) mmol/L Chloride (98-107) mmol/L Carbon Dioxide (21.0-32.0) mmol/L BUN (7.0-18.0) mg/dL Creatinine (0.8-1.3) mg/dL Est Cr Clr Drug Dosing mL/min Estimated GFR (MDRD) ml/min Glucose (74-106) mg/dL POC Glucose 248 H 177 H (60-110) mg/dL Calcium (8.5-10.1) mg/dL Magnesium 1.7 L (1.8-2.4) mg/dL Total Bilirubin (0.2-1.0) mg/dL AST (15-37) IU/L ALT (14-63) IU/L Alkaline Phosphatase (46-116) U/L Total Protein (6.4-8.2) g/dL Albumin (3.4-5.0) g/dL Globulin (2.6-4.0) g/dL Albumin/Globulin Ratio (0.9-1.6) 11/09/19 11/09/19 11/09/19 Range/Units 05:45 05:45 06:27 WBC 9.65 (4.0-11.0) K/uL RBC 4.32 L (4.50-5.90) M/uL Hgb 14.5 (13.0-17.0) g/dL Hct 42.1 (38.0-50.0) % MCV 97.5 (80.0-98.0) fL MCH 33.6 H (27.0-32.0) pg MCHC 34.4 (31.0-37.0) g/dL RDW Std Deviation 48.2 (28.0-62.0) fl RDW Coeff of Abdirizak 14 (11.0-15.0) % Plt Count 193 (150-400) K/uL MPV 11.00 (7.40-12.00) fL Neut % (Auto) 80.1 H (48.0-80.0) % Lymph % (Auto) 10.4 L (16.0-40.0) % Dale % (Auto) 9.3 (0.0-15.0) % Eos % (Auto) 0.0 (0.0-7.0) % Baso % (Auto) 0.2 (0.0-1.5) % Neut # (Auto) 7.7 H (1.4-5.7) K/uL Lymph # (Auto) 1.0 (0.6-2.4) K/uL Dale # (Auto) 0.9 H (0.0-0.8) K/uL Eos # (Auto) 0.0 (0.0-0.7) K/uL Baso # (Auto) 0.0 (0.0-0.1) K/uL Sodium 135 L (136-148) mmol/L Potassium 3.8 (3.5-5.1) mmol/L Chloride 97 L (98-107) mmol/L Carbon Dioxide 30.9 (21.0-32.0) mmol/L BUN 31 H (7.0-18.0) mg/dL Creatinine 1.0 (0.8-1.3) mg/dL Est Cr Clr Drug Dosing 86.80 mL/min Estimated GFR (MDRD) > 60.0 ml/min Glucose 109 H (74-106) mg/dL POC Glucose 111 H (60-110) mg/dL Calcium 8.5 (8.5-10.1) mg/dL Magnesium 1.8 (1.8-2.4) mg/dL Total Bilirubin 1.7 H (0.2-1.0) mg/dL AST 25 (15-37) IU/L ALT 22 (14-63) IU/L Alkaline Phosphatase 126 H (46-116) U/L Total Protein 8.0 (6.4-8.2) g/dL Albumin 3.6 (3.4-5.0) g/dL Globulin 4.4 H (2.6-4.0) g/dL Albumin/Globulin Ratio 0.8 L (0.9-1.6) Med Orders - Current: Current Medications Acetaminophen (Tylenol) 650 mg PO Q4H PRN PRN Reason: Pain (Mild 1-3)/fever Last Admin: 11/09/19 06:44 Dose: 650 mg Documented by: Albuterol/Ipratropium (Duoneb 3.0-0.5 Mg/3 Ml) 3 ml NEB Q4HRRT PRN PRN Reason: Dyspnea Last Admin: 11/08/19 08:20 Dose: 3 ml Documented by: Aspirin (Aspirin) 81 mg PO DAILY [facility] Last Admin: 11/09/19 09:27 Dose: 81 mg Documented by: Atorvastatin Calcium (Lipitor) 40 mg PO BEDTIME CHARLIE Last Admin: 11/08/19 22:22 Dose: 40 mg Documented by: Benzocaine/Menthol (Cepacol Sore Throat) 1 lozenge MUCMEM Q2H PRN PRN Reason: Cough Last Admin: 11/09/19 06:46 Dose: 1 lozenge Documented by: Furosemide (Lasix) 40 mg IVPUSH Q8H CHARLIE Last Admin: 11/09/19 09:25 Dose: 40 mg Documented by: Heparin Sodium (Porcine) (Heparin Sodium) 5,000 units SUBCUT Q8H CHARLIE Last Admin: 11/09/19 09:31 Dose: 5,000 units Documented by: Insulin Aspart (Novolog) 0 unit SUBCUT TIDAC [facility]; Protocol Last Admin: 11/09/19 08:04 Dose: Not Given Documented by: Labetalol HCl (Normodyne) 10 mg IVPUSH Q4H PRN; Protocol PRN Reason: Hypertension Lisinopril (Prinivil) 10 mg PO DAILY [facility] Last Admin: 11/09/19 09:27 Dose: 10 mg Documented by: Lorazepam (Ativan) 0 mg IVPUSH Q4H PRN; Protocol PRN Reason: Agitation Discontinued Medications Aspirin (Aspirin) 324 mg PO ONETIME ONE Stop: 11/07/19 14:50 Last Admin: 11/07/19 15:10 Dose: 324 mg Documented by: Furosemide (Lasix) 40 mg IVPUSH NOW ONE Stop: 11/07/19 16:24 Last Admin: 11/07/19 17:02 Dose: 40 mg Documented by: Furosemide (Lasix) 40 mg IVPUSH Q8H CHARLIE Guaifenesin/Codeine Phosphate (Robitussin Ac) 5 ml PO ONETIME ONE Stop: 11/08/19 15:01 Last Admin: 11/08/19 15:56 Dose: 5 ml Documented by: Magnesium Sulfate 2 gm/ Premix 50 mls @ 50 mls/hr IV ONETIME ONE Stop: 11/08/19 00:07 Last Admin: 11/07/19 23:40 Dose: 50 mls/hr Documented by: Magnesium Sulfate 2 gm/ Premix 50 mls @ 50 mls/hr IV ONETIME ONE Stop: 11/08/19 13:23 Last Admin: 11/08/19 13:15 Dose: 50 mls/hr Documented by: Iopamidol (Isovue Multipack-370 (76%)) 100 ml IVPUSH ONETIME ONE Stop: 11/07/19 16:33 Last Admin: 11/07/19 16:33 Dose: 100 ml Documented by: Lisinopril (Prinivil) 10 mg PO ONETIME ONE Stop: 11/07/19 17:07 Last Admin: 11/07/19 18:04 Dose: 10 mg Documented by: Methylprednisolone Sodium Succinate (Solu-Medrol) 125 mg IVPUSH ONETIME ONE Stop: 11/07/19 14:55 Last Admin: 11/07/19 15:09 Dose: 125 mg Documented by: Nitroglycerin (Nitrostat) 0.4 mg SL Q5M PRN PRN Reason: Chest Pain Last Admin: 11/07/19 15:11 Dose: 0.4 mg Documented by: Potassium Chloride (Klor-Con M20) 40 meq PO ONETIME ONE Stop: 11/08/19 11:41 Last Admin: 11/08/19 12:12 Dose: 40 meq Documented by: - Exam Quality Assessment: No: Supplemental Oxygen General: Alert, Oriented Neck: Supple Lungs: Clear to Auscultation, Normal Respiratory Effort Cardiovascular: Regular Rate, Regular Rhythm GI/Abdominal Exam: Normal Bowel Sounds, Soft, Non-Tender Sepsis Event Note - Evaluation Sepsis Screening Result: No Definite Risk - Focused Exam Vital Signs: Vital Signs Temp Pulse Resp BP BP Pulse Ox 11/09/19 09:27 137/90 11/09/19 08:00 36.9 C 106 H 18 137/92 H 95 11/09/19 04:00 36.6 C 100 16 140/90 96 11/09/19 00:00 36.6 C 104 H 16 133/87 96 Date Exam was Performed: 11/09/19 Time Exam was Performed: 11:53 - Problem List & Annotations (1) Borderline type 2 diabetes mellitus SNOMED Code(s): 991245221 Code(s): R73.03 - PREDIABETES Status: Acute Current Visit: Yes (2) CHF (congestive heart failure) SNOMED Code(s): 72494717 Code(s): I50.9 - HEART FAILURE, UNSPECIFIED Status: Acute Current Visit: Yes Qualifiers: Heart failure type: unspecified Heart failure chronicity: unspecified Qualified Code(s): I50.9 - Heart failure, unspecified (3) COPD (chronic obstructive pulmonary disease) SNOMED Code(s): 27719046 Code(s): J44.9 - CHRONIC OBSTRUCTIVE PULMONARY DISEASE, UNSPECIFIED Status: Acute Current Visit: Yes (4) Chest pain, rule out acute myocardial infarction SNOMED Code(s): 44373825 Code(s): R07.9 - CHEST PAIN, UNSPECIFIED Status: Acute Current Visit: Yes (5) Noncompliance with medication regimen SNOMED Code(s): 467729964 Code(s): Z91.14 - PATIENT'S OTHER NONCOMPLIANCE WITH MEDICATION REGIMEN Status: Acute Current Visit: Yes (6) Uncontrolled hypertension SNOMED Code(s): 92938095, 08455930 Code(s): I10 - ESSENTIAL (PRIMARY) HYPERTENSION Status: Acute Current Visit: Yes - Problem List Review Problem List Initiated/Reviewed/Updated: Yes - Plan Plan:: Assessment and Plan: 1. CHF exacerbation: - Patient in negative fluid balance. Continue IV lasix 40 mg TID. ECHO ordered but unavailable over weekend. - Continue strict I/O's, daily standing weights, fluid restrict < 2L and low salt < 2 g per day. - CXR showed small right pleural effusion - start B blcoker 2. Chest pain, resolved: - Troponins were trended and negative x3. Patient on aspirin and statin. - EKG on admission showed sinus tachycardia with prolonged QT interval. - CT angio negative for pulmonary embolism, showed small right pleural and nodule in RML. 3. Hypertension: - Will start lisinopril 10 mg qd. Will continue to monitor. 4. Hypomagnesemia: - Replete with IV mag sulfate and recheck with AM labs. 5. Alcohol abuse: - IV ativan q4 prn CIWAA protocol. 6. Diabetes mellitus type 2: - ADA diet, SSI, glucose checks TIDAC. 7. Right middle lobe nodule: - Reviewed CT chest results with patient and recommend repeat CT chest w/o contrast in 6 months. 8. DVT prophylaxis: heparin.
[2019-11-09] MEDS: Carvedilol 3.125 MG Tab PO SCH ×2 (12:23→20:42)
[2019-11-09] MEDS ORDERED: Magnesium Oxide 400 MG Tab PO ONE (17:07)
[2019-11-09] MEDS: atorvaSTATin 40 MG Tab PO SCH (20:41)
[2019-11-10] MEDS: Heparin Sodium 5,000 Units/ML Vial SUBCUT SCH ×2 (03:19→10:44)
[2019-11-10] MEDS ORDERED: Furosemide 40 MG/4 ML VIAL IVPUSH SCH (04:00)
[2019-11-10 06:08] LABS: BLOOD UREA NITROGEN,BUN 33 mg/dL (7.0-18.0); CARBON DIOXIDE,CO2 34.1 mmol/L (21.0-32.0); CHLORIDE,CL 96 mmol/L (98-107); GLUCOSE RANDOM 123 mg/dL (74-106); POTASSIUM,K 3.5 mmol/L (3.5-5.1); SODIUM,NA 137 mmol/L (136-148)
[2019-11-10] MEDS: Insulin Aspart 100 Units/ML 3 ML Pen SUBCUT SCH (06:48)
[2019-11-10] MEDS ORDERED: Magnesium Sulfate/Water 2 GM in Premix Bag 1 BAG IV ONE ×2 (07:19→10:36)
[2019-11-10] MEDS: Carvedilol 3.125 MG Tab PO SCH (08:20)
[2019-11-10] MEDS: Aspirin 81 MG Tab.Chew PO SCH (08:20)
[2019-11-10] MEDS: Lisinopril 10 MG Tab PO SCH (08:21)
[2019-11-10] MEDS ORDERED: Potassium Chloride 20 MEQ Tab.ER PO ONE (10:36)
--- NOTE | 2019-11-10 11:31 | PCM.DCSUM1 ---
<Jamey Diaz - Last Filed: 11/10/19 11:32> Discharge Summary - Hospital Course Free Text/Narrative:: 58-year-old male admitted for CHF exacerbation. He has a PMH of pre-diabetes, COPD and HTN. Patient has history of medication non-compliance and recently moved to [place] from [place]. On admission, CXR showed small right pleural effusion. CT angio showed small right pleural effusion and nodule in RML (repeat CT chest w/o contrast recommended in [address] abd/pelvis showed abdominal wall hernia, small amount of ascites around liver and multiple gallstones. BNP level was 2000, troponin negative and COVID19 test negative. Troponins were trended and were negative. ECHO ordered and currently pending at time of discharge. Patient was diuresed with IV lasix and started on strict I's and O's, daily weights, fluid restrict < 2L per day and low salt < 2 g per day. Patient had significant improvement in his shortness of breath and leg swelling on day of discharge. Reviewed CT chest findings of RML nodule and advised him that he requires repeat CT chest w/o contrast in 6 months. Patient verbalized understanding. Patient discharged in stable condition on aspirin, statin, lasix 40 mg qd, lisinopril 10 mg qd and coreg 3.125 mg BID. Advised to follow-up with PCP and college athletic [employer] on discharge. - Discharge Data Discharge Date: 11/10/19 Discharge Disposition: Home, Self-Care 01 Condition: Stable - Referral to Home Health Primary Care Physician: PCP None - Patient Summary/Data Consults: Consultations 11/09/19 17:08 Consult to Case Management/Personal Counselor [CONS] Routine - Patient Instructions Diet: Heart Healthy Diet, Low Sodium, Fluid Restriction, Diabetic Diet Diet, Other: Low sodium < 2 g per day Fluid Restriction: 2000 mL Activity: As Tolerated Notify Provider of: Fever, Increased Pain, Swelling and Redness, Drainage, Nausea and/or Vomiting - Discharge Plan *PRESCRIPTION DRUG MONITORING PROGRAM REVIEWED*: Not Applicable *COPY OF PRESCRIPTION DRUG MONITORING REPORT IN PATIENT JOSIAS: Not Applicable Prescriptions/Med Rec: Aspirin 81 mg PO DAILY 30 Days #30 tab.chew carvediloL [Coreg] 3.125 mg PO BID 30 Days #60 tablet Furosemide 40 mg PO DAILY 30 Days #30 tablet atorvaSTATin [Lipitor] 40 mg PO BEDTIME 30 Days #30 tablet lisinopriL [Prinivil] 10 mg PO DAILY 30 Days #30 tablet Home Medications: Home Meds Aspirin 81 mg PO DAILY 30 Days #30 tab.chew 11/10/19 [Rx] Furosemide 40 mg PO DAILY 30 Days #30 tablet 11/10/19 [Rx] atorvaSTATin [Lipitor] 40 mg PO BEDTIME 30 Days #30 tablet 11/10/19 [Rx] carvediloL [Coreg] 3.125 mg PO BID 30 Days #60 tablet 11/10/19 [Rx] lisinopriL [Prinivil] 10 mg PO DAILY 30 Days #30 tablet 11/10/19 [Rx] Oxygen Therapy Mode: Room Air Patient Handouts: Chronic Obstructive Pulmonary Disease Exacerbation, [id number], Type 2 Diabetes Mellitus, Diagnosis, Adult, Furosemide tablets, Heart Failure, Self Care, Xavj-[id number], Hypoglycemia, Chronic Obstructive Pulmonary Disease, Zghe-xn-Mksk, Carvedilol tablets, Hyperglycemia, Yxlp-zz-Krej, Hypertension, Adult, Srdb-hm-Jtfo, Preventing Hypertension, Atorvastatin tablets, Lisinopril tablets, Aspirin, ASA oral tablets Referrals: Shiva Jorge MD [Physician] - 11/13/19 2:30 pm (Please arrive 15 minutes early on day of your appointment. Please have your own mask. bring photo idenification and insurance cards.) - Discharge Summary/Plan Comment DC Time >30 min.: No - Patient Data Vitals - Most Recent: Last Vital Signs Temp 36.6 C 11/10/19 08:00 Pulse 87 11/10/19 08:20 Resp 16 11/10/19 08:00 BP 115/72 11/10/19 08:21 Pulse Ox 92 L 11/10/19 08:00 Weight - Most Recent: 94.12 kg I&O - Last 24 hours: Intake & Output 11/09/19 11/10/19 11/10/19 22:59 06:59 14:59 Intake Total 700 420 Output Total 3230 2700 Balance -2530 -2280 Lab Results - Last 24 hrs: Laboratory Results - last 24 hr 11/09/19 11/09/19 11/10/19 Range/Units 12:15 16:54 05:30 WBC 7.24 (4.0-11.0) K/uL RBC 4.73 (4.50-5.90) M/uL Hgb 15.7 (13.0-17.0) g/dL Hct 46.4 (38.0-50.0) % MCV 98.1 H (80.0-98.0) fL MCH 33.2 H (27.0-32.0) pg MCHC 33.8 (31.0-37.0) g/dL RDW Std Deviation 49.8 (28.0-62.0) fl RDW Coeff of Abdirizak 14 (11.0-15.0) % Plt Count 193 (150-400) K/uL MPV 10.60 (7.40-12.00) fL Neut % (Auto) 67.8 (48.0-80.0) % Lymph % (Auto) 21.0 (16.0-40.0) % Letcher % (Auto) 10.6 (0.0-15.0) % Eos % (Auto) 0.3 (0.0-7.0) % Baso % (Auto) 0.3 (0.0-1.5) % Neut # (Auto) 4.9 (1.4-5.7) K/uL Lymph # (Auto) 1.5 (0.6-2.4) K/uL Letcher # (Auto) 0.8 (0.0-0.8) K/uL Eos # (Auto) 0.0 (0.0-0.7) K/uL Baso # (Auto) 0.0 (0.0-0.1) K/uL Sodium (136-148) mmol/L Potassium (3.5-5.1) mmol/L Chloride (98-107) mmol/L Carbon Dioxide (21.0-32.0) mmol/L BUN (7.0-18.0) mg/dL Creatinine (0.8-1.3) mg/dL Est Cr Clr Drug Dosing mL/min Estimated GFR (MDRD) ml/min Glucose (74-106) mg/dL POC Glucose 165 H 114 H (60-110) mg/dL Calcium (8.5-10.1) mg/dL Phosphorus (2.6-4.7) mg/dL Magnesium (1.8-2.4) mg/dL 08/10/20 08/10/20 Range/Units 05:30 06:25 WBC (4.0-11.0) K/uL RBC (4.50-5.90) M/uL Hgb (13.0-17.0) g/dL Hct (38.0-50.0) % MCV (80.0-98.0) fL MCH (27.0-32.0) pg MCHC (31.0-37.0) g/dL RDW Std Deviation (28.0-62.0) fl RDW Coeff of Abdirizak (11.0-15.0) % Plt Count (150-400) K/uL MPV (7.40-12.00) fL Neut % (Auto) (48.0-80.0) % Lymph % (Auto) (16.0-40.0) % Letcher % (Auto) (0.0-15.0) % Eos % (Auto) (0.0-7.0) % Baso % (Auto) (0.0-1.5) % Neut # (Auto) (1.4-5.7) K/uL Lymph # (Auto) (0.6-2.4) K/uL Letcher # (Auto) (0.0-0.8) K/uL Eos # (Auto) (0.0-0.7) K/uL Baso # (Auto) (0.0-0.1) K/uL Sodium 137 (136-148) mmol/L Potassium 3.5 (3.5-5.1) mmol/L Chloride 96 L (98-107) mmol/L Carbon Dioxide 34.1 H (21.0-32.0) mmol/L BUN 33 H (7.0-18.0) mg/dL Creatinine 1.1 (0.8-1.3) mg/dL Est Cr Clr Drug Dosing 78.91 mL/min Estimated GFR (MDRD) > 60.0 ml/min Glucose 123 H (74-106) mg/dL POC Glucose 113 H (60-110) mg/dL Calcium 8.7 (8.5-10.1) mg/dL Phosphorus 3.5 (2.6-4.7) mg/dL Magnesium 1.5 L (1.8-2.4) mg/dL Med Orders - Current: Current Medications Acetaminophen (Tylenol) 650 mg PO Q4H PRN PRN Reason: Pain (Mild 1-3)/fever Last Admin: 11/09/19 06:44 Dose: 650 mg Documented by: Albuterol/Ipratropium (Duoneb 3.0-0.5 Mg/3 Ml) 3 ml NEB Q4HRRT PRN PRN Reason: Dyspnea Last Admin: 11/08/19 08:20 Dose: 3 ml Documented by: Aspirin (Aspirin) 81 mg PO DAILY [facility] Last Admin: 11/10/19 08:20 Dose: 81 mg Documented by: Atorvastatin Calcium (Lipitor) 40 mg PO BEDTIME [facility] Last Admin: 11/09/19 20:41 Dose: 40 mg Documented by: Benzocaine/Menthol (Cepacol Sore Throat) 1 lozenge MUCMEM Q2H PRN PRN Reason: Cough Last Admin: 11/09/19 20:41 Dose: 1 lozenge Documented by: Carvedilol (Coreg) 3.125 mg PO BID [facility] Last Admin: 11/10/19 08:20 Dose: 3.125 mg Documented by: Furosemide (Lasix) 40 mg IVPUSH Q12H [facility] Last Admin: 11/10/19 03:20 Dose: 40 mg Documented by: Heparin Sodium (Porcine) (Heparin Sodium) 5,000 units SUBCUT Q8H [facility] Last Admin: 11/10/19 10:44 Dose: 5,000 units Documented by: Magnesium Sulfate 2 gm/ Premix 50 mls @ 50 mls/hr IV ONETIME ONE Stop: 11/10/19 11:35 Last Admin: 11/10/19 11:22 Dose: 50 mls/hr Documented by: Insulin Aspart (Novolog) 0 unit SUBCUT TIDAC [facility]; Protocol Last Admin: 11/10/19 06:48 Dose: Not Given Documented by: Labetalol HCl (Normodyne) 10 mg IVPUSH Q4H PRN; Protocol PRN Reason: Hypertension Lisinopril (Prinivil) 10 mg PO DAILY [facility] Last Admin: 11/10/19 08:21 Dose: 10 mg Documented by: Lorazepam (Ativan) 0 mg IVPUSH Q4H PRN; Protocol PRN Reason: Agitation Discontinued Medications Aspirin (Aspirin) 324 mg PO ONETIME ONE Stop: 11/07/19 14:50 Last Admin: 11/07/19 15:10 Dose: 324 mg Documented by: Furosemide (Lasix) 40 mg IVPUSH NOW ONE Stop: 11/07/19 16:24 Last Admin: 11/07/19 17:02 Dose: 40 mg Documented by: Furosemide (Lasix) 40 mg IVPUSH Q8H [facility] Furosemide (Lasix) 40 mg IVPUSH Q8H [facility] Last Admin: 11/09/19 16:13 Dose: 40 mg Documented by: Guaifenesin/Codeine Phosphate (Robitussin Ac) 5 ml PO ONETIME ONE Stop: 11/08/19 15:01 Last Admin: 11/08/19 15:56 Dose: 5 ml Documented by: Magnesium Sulfate 2 gm/ Premix 50 mls @ 50 mls/hr IV ONETIME ONE Stop: 11/08/19 00:07 Last Admin: 11/07/19 23:40 Dose: 50 mls/hr Documented by: Magnesium Sulfate 2 gm/ Premix 50 mls @ 50 mls/hr IV ONETIME ONE Stop: 11/08/19 13:23 Last Admin: 11/08/19 13:15 Dose: 50 mls/hr Documented by: Magnesium Sulfate 2 gm/ Premix 50 mls @ 50 mls/hr IV ONETIME ONE Stop: 11/10/19 08:18 Last Admin: 11/10/19 08:15 Dose: 50 mls/hr Documented by: Iopamidol (Isovue Multipack-370 (76%)) 100 ml IVPUSH ONETIME ONE Stop: 11/07/19 16:33 Last Admin: 11/07/19 16:33 Dose: 100 ml Documented by: Lisinopril (Prinivil) 10 mg PO ONETIME ONE Stop: 11/07/19 17:07 Last Admin: 11/07/19 18:04 Dose: 10 mg Documented by: Magnesium Oxide (Magnesium Oxide) 800 mg PO ONETIME ONE Stop: 11/09/19 17:08 Last Admin: 11/09/19 17:43 Dose: 800 mg Documented by: Methylprednisolone Sodium Succinate (Solu-Medrol) 125 mg IVPUSH ONETIME ONE Stop: 11/07/19 14:55 Last Admin: 11/07/19 15:09 Dose: 125 mg Documented by: Nitroglycerin (Nitrostat) 0.4 mg SL Q5M PRN PRN Reason: Chest Pain Last Admin: 11/07/19 15:11 Dose: 0.4 mg Documented by: Potassium Chloride (Klor-Con M20) 40 meq PO ONETIME ONE Stop: 11/08/19 11:41 Last Admin: 11/08/19 12:12 Dose: 40 meq Documented by: Potassium Chloride (Klor-Con M20) 40 meq PO ONETIME ONE Stop: 11/10/19 10:37 Last Admin: 11/10/19 11:22 Dose: 40 meq Documented by: <Alexx Jenkins - Last Filed: 11/10/19 19:08> Discharge Summary - Hospital Course Free Text/Narrative:: I have seen and evaluated the patient and agree with the residents note unless specified in my note - Referral to Home Health Primary Care Physician: PCP None - Discharge Diagnosis/Problem(s) (1) Borderline type 2 diabetes mellitus SNOMED Code(s): 100849858 ICD Code: R73.03 - PREDIABETES Status: Acute (2) CHF (congestive heart failure) SNOMED Code(s): 89045211 ICD Code: I50.9 - HEART FAILURE, UNSPECIFIED Status: Acute Qualifiers: Heart failure type: unspecified Heart failure chronicity: unspecified Qualified Code(s): I50.9 - Heart failure, unspecified (3) COPD (chronic obstructive pulmonary disease) SNOMED Code(s): 48051879 ICD Code: J44.9 - CHRONIC OBSTRUCTIVE PULMONARY DISEASE, UNSPECIFIED Status: Acute (4) Chest pain, rule out acute myocardial infarction SNOMED Code(s): 71371250 ICD Code: R07.9 - CHEST PAIN, UNSPECIFIED Status: Acute (5) Noncompliance with medication regimen SNOMED Code(s): 988905753 ICD Code: Z91.14 - PATIENT'S OTHER NONCOMPLIANCE WITH MEDICATION REGIMEN Status: Acute (6) Uncontrolled hypertension SNOMED Code(s): 01152098, 30350043 ICD Code: I10 - ESSENTIAL (PRIMARY) HYPERTENSION Status: Acute - Patient Summary/Data Consults: Consultations 11/09/19 17:08 Consult to Case Management/Personal Counselor [CONS] Routine - Patient Data Vitals - Most Recent: Last Vital Signs Temp 36.6 C 11/10/19 08:00 Pulse 87 11/10/19 08:20 Resp 16 11/10/19 08:00 BP 115/72 11/10/19 08:21 Pulse Ox 92 L 11/10/19 08:00 I&O - Last 24 hours: Intake & Output 11/10/19 11/10/19 11/10/19 06:59 14:59 22:59 Intake Total 420 Output Total 2700 Balance -2280 Lab Results - Last 24 hrs: Laboratory Results - last 24 hr 11/10/19 11/10/19 11/10/19 Range/Units 05:30 05:30 06:25 WBC 7.24 (4.0-11.0) K/uL RBC 4.73 (4.50-5.90) M/uL Hgb 15.7 (13.0-17.0) g/dL Hct 46.4 (38.0-50.0) % MCV 98.1 H (80.0-98.0) fL MCH 33.2 H (27.0-32.0) pg MCHC 33.8 (31.0-37.0) g/dL RDW Std Deviation 49.8 (28.0-62.0) fl RDW Coeff of Abdirizak 14 (11.0-15.0) % Plt Count 193 (150-400) K/uL MPV 10.60 (7.40-12.00) fL Neut % (Auto) 67.8 (48.0-80.0) % Lymph % (Auto) 21.0 (16.0-40.0) % Letcher % (Auto) 10.6 (0.0-15.0) % Eos % (Auto) 0.3 (0.0-7.0) % Baso % (Auto) 0.3 (0.0-1.5) % Neut # (Auto) 4.9 (1.4-5.7) K/uL Lymph # (Auto) 1.5 (0.6-2.4) K/uL Letcher # (Auto) 0.8 (0.0-0.8) K/uL Eos # (Auto) 0.0 (0.0-0.7) K/uL Baso # (Auto) 0.0 (0.0-0.1) K/uL Sodium 137 (136-148) mmol/L Potassium 3.5 (3.5-5.1) mmol/L Chloride 96 L (98-107) mmol/L Carbon Dioxide 34.1 H (21.0-32.0) mmol/L BUN 33 H (7.0-18.0) mg/dL Creatinine 1.1 (0.8-1.3) mg/dL Est Cr Clr Drug Dosing 78.91 mL/min Estimated GFR (MDRD) > 60.0 ml/min Glucose 123 H (74-106) mg/dL POC Glucose 113 H (60-110) mg/dL Calcium 8.7 (8.5-10.1) mg/dL Phosphorus 3.5 (2.6-4.7) mg/dL Magnesium 1.5 L (1.8-2.4) mg/dL Med Orders - Current: Current Medications Discontinued Medications Acetaminophen (Tylenol) 650 mg PO Q4H PRN PRN Reason: Pain (Mild 1-3)/fever Last Admin: 11/09/19 06:44 Dose: 650 mg Documented by: Albuterol/Ipratropium (Duoneb 3.0-0.5 Mg/3 Ml) 3 ml NEB Q4HRRT PRN PRN Reason: Dyspnea Last Admin: 11/08/19 08:20 Dose: 3 ml Documented by: Aspirin (Aspirin) 324 mg PO ONETIME ONE Stop: 11/07/19 14:50 Last Admin: 11/07/19 15:10 Dose: 324 mg Documented by: Aspirin (Aspirin) 81 mg PO DAILY [facility] Last Admin: 11/10/19 08:20 Dose: 81 mg Documented by: Atorvastatin Calcium (Lipitor) 40 mg PO BEDTIME [facility] Last Admin: 11/09/19 20:41 Dose: 40 mg Documented by: Benzocaine/Menthol (Cepacol Sore Throat) 1 lozenge MUCMEM Q2H PRN PRN Reason: Cough Last Admin: 11/09/19 20:41 Dose: 1 lozenge Documented by: Carvedilol (Coreg) 3.125 mg PO BID [facility] Last Admin: 11/10/19 08:20 Dose: 3.125 mg Documented by: Furosemide (Lasix) 40 mg IVPUSH NOW ONE Stop: 11/07/19 16:24 Last Admin: 11/07/19 17:02 Dose: 40 mg Documented by: Furosemide (Lasix) 40 mg IVPUSH Q8H [facility] Furosemide (Lasix) 40 mg IVPUSH Q8H [facility] Last Admin: 11/09/19 16:13 Dose: 40 mg Documented by: Furosemide (Lasix) 40 mg IVPUSH Q12H [facility] Last Admin: 11/10/19 03:20 Dose: 40 mg Documented by: Guaifenesin/Codeine Phosphate (Robitussin Ac) 5 ml PO ONETIME ONE Stop: 11/08/19 15:01 Last Admin: 11/08/19 15:56 Dose: 5 ml Documented by: Heparin Sodium (Porcine) (Heparin Sodium) 5,000 units SUBCUT Q8H [facility] Last Admin: 11/10/19 10:44 Dose: 5,000 units Documented by: Magnesium Sulfate 2 gm/ Premix 50 mls @ 50 mls/hr IV ONETIME ONE Stop: 11/08/19 00:07 Last Admin: 11/07/19 23:40 Dose: 50 mls/hr Documented by: Magnesium Sulfate 2 gm/ Premix 50 mls @ 50 mls/hr IV ONETIME ONE Stop: 11/08/19 13:23 Last Admin: 11/08/19 13:15 Dose: 50 mls/hr Documented by: Magnesium Sulfate 2 gm/ Premix 50 mls @ 50 mls/hr IV ONETIME ONE Stop: 11/10/19 08:18 Last Admin: 11/10/19 08:15 Dose: 50 mls/hr Documented by: Magnesium Sulfate 2 gm/ Premix 50 mls @ 50 mls/hr IV ONETIME ONE Stop: 11/10/19 11:35 Last Admin: 11/10/19 11:22 Dose: 50 mls/hr Documented by: Insulin Aspart (Novolog) 0 unit SUBCUT TIDAC [facility]; Protocol Last Admin: 11/10/19 06:48 Dose: Not Given Documented by: Iopamidol (Isovue Multipack-370 (76%)) 100 ml IVPUSH ONETIME ONE Stop: 11/07/19 16:33 Last Admin: 11/07/19 16:33 Dose: 100 ml Documented by: Labetalol HCl (Normodyne) 10 mg IVPUSH Q4H PRN; Protocol PRN Reason: Hypertension Lisinopril (Prinivil) 10 mg PO ONETIME ONE Stop: 11/07/19 17:07 Last Admin: 11/07/19 18:04 Dose: 10 mg Documented by: Lisinopril (Prinivil) 10 mg PO DAILY [facility] Last Admin: 11/10/19 08:21 Dose: 10 mg Documented by: Lorazepam (Ativan) 0 mg IVPUSH Q4H PRN; Protocol PRN Reason: Agitation Magnesium Oxide (Magnesium Oxide) 800 mg PO ONETIME ONE Stop: 11/09/19 17:08 Last Admin: 11/09/19 17:43 Dose: 800 mg Documented by: Methylprednisolone Sodium Succinate (Solu-Medrol) 125 mg IVPUSH ONETIME ONE Stop: 11/07/19 14:55 Last Admin: 11/07/19 15:09 Dose: 125 mg Documented by: Nitroglycerin (Nitrostat) 0.4 mg SL Q5M PRN PRN Reason: Chest Pain Last Admin: 11/07/19 15:11 Dose: 0.4 mg Documented by: Potassium Chloride (Klor-Con M20) 40 meq PO ONETIME ONE Stop: 11/08/19 11:41 Last Admin: 11/08/19 12:12 Dose: 40 meq Documented by: Potassium Chloride (Klor-Con M20) 40 meq PO ONETIME ONE Stop: 11/10/19 10:37 Last Admin: 11/10/19 11:22 Dose: 40 meq Documented by:
--- NOTE | 2019-11-11 12:55 | ECHO ---
EXAM DATE: 11/07/19 PATIENT'S AGE: 58 The ECHO report has been scanned into [facility] and can be seen in this patient's EMR (Electronic Medical Record) under the REPORTS section. The report has also been scanned into PACS. [id number]
== END 2019-11-10 13:19 | disposition home or self-care (01) ==
LOC: MW.ED 14:32 → MW.MS 17:12
PROVIDERS: ADMIT Student in an Organized Health Care Education/Training Program; ATTEND Student in an Organized Health Care Education/Training Program
DX: I11.0 Hypertensive heart disease with heart failure (principal); I50.9 Heart failure, unspecified; R94.31 Abnormal electrocardiogram [ECG] [EKG]; R00.0 Tachycardia, unspecified; J44.9 Chronic obstructive pulmonary disease, unspecified; K43.9 Ventral hernia without obstruction or gangrene; K80.80 Other cholelithiasis without obstruction; E83.42 Hypomagnesemia; E11.9 Type 2 diabetes mellitus without complications; R91.1 Solitary pulmonary nodule; F10.10 Alcohol abuse, uncomplicated; R18.8 Other ascites; F17.210 Nicotine dependence, cigarettes, uncomplicated; Z20.828 Contact with and (suspected) exposure to other viral communicable diseases; Z88.8 Allergy status to other drugs, medicaments and biological substances; Z91.14 Patient's other noncompliance with medication regimen; Z79.82 Long term (current) use of aspirin; Z79.899 Other long term (current) drug therapy
CPT/HCPCS: 36415; 71045; 71275; 74177; 80048; 80053; 80061; 81001; 82962; 83036; 83605; 83690; 83735; 83880; 84100; 84443; 84484; 85025; 85379; 87635; 93005; 93306; 94640; 96372; 96374; 96375; 96376; 99285; A9270; G0378; J1644; J1815; J1940; J2930; J3475; Q9967; 99284; J7620-GY; U0002